=== PATIENT | female | born 1955 | race Caucasian/White ===

== ENCOUNTER → 2017-02-16 | Outpatient (CLI) | payer BC ==
--- NOTE | 2017-02-16 09:22 | US ---
EXAMINATION TYPE: US abdomen complete DATE OF EXAM: 02/16/2017 8:57 AM COMPARISON: NONE CLINICAL HISTORY: R10.13 EPIGASTRIC PAIN, Gb removed 8 years ago.. EXAM MEASUREMENTS: Liver Length: 15.1 cm Gallbladder Wall: Surgically absent cm CBD: 0.5 cm Spleen: 10.7 cm Right Kidney: 11.2 x 5.5 x 5.1 cm Left Kidney: 11.0 x 4.7 x 5.0 cm cm TECHNOLOGIST IMPRESSION: Pancreas: Obscured by bowel gas Liver: Obscured by overlying bowel gas, imaged portions wnl Gallbladder: Surgically absent Evidence for sonographic North's sign: yes CBD: wnl Spleen: wnl Right Kidney: wnl Left Kidney: wnl Upper IVC: wnl Abd Aorta: wnl The visualized liver is heterogeneously hyperechoic. There is no suspicious intrahepatic ductal dilat ation seen. Evaluation for focal masses is suboptimal due to heterogeneity and shadowing from overlyi ng bowel gas . The intrahepatic portion of the IVC and visualized abdominal aorta are within normal l imits. Gallbladder is surgically absent. Common bile duct is unremarkable. The visualized portions of the pancreas are heterogeneous. Portions of pancreas are obscured by overlying bowel gas. The spl een is unremarkable. Kidneys are symmetric and free of hydronephrosis. No renal lesions are seen. IMPRESSION: Suboptimal study without suspicious finding seen to account for patient's symptoms
== END | disposition home or self-care (01) ==
LOC: RADUSWWP 08:30
DX: R10.13 Epigastric pain (principal)
CPT/HCPCS: 76700

== ENCOUNTER → 2017-02-16 | Outpatient (CLI) | payer BC ==
[2017-02-16 10:04] LABS: ALT 54 U/L (9-52); AST 51 U/L (14-36); Alkaline Phosphatase 89 U/L (38-126); Anion Gap 10 mmol/L; Blood Urea Nitrogen 14 mg/dL (7-17); Calcium 9.4 mg/dL (8.4-10.2); Carbon Dioxide 31 mmol/L (22-30); Chloride 102 mmol/L (98-107); Cholesterol 199 mg/dL (<200); Glucose 96 mg/dL (74-99); HDL Cholesterol 56 mg/dL (40-60); Non-African American GFR(MDRD) >60 (>60 ml/min/1.73 sqM); Sodium 143 mmol/L (137-145); Total Bilirubin 0.6 mg/dL (0.2-1.3); Total Protein 7.4 g/dL (6.3-8.2); Triglycerides 90 mg/dL (<150)
[2017-02-16 10:13] LABS: Potassium 4.2 mmol/L (3.5-5.1)
== END | disposition home or self-care (01) ==
LOC: LABWHC1 08:34
PROVIDERS: ATTEND Nurse Practitioner Family
DX: I10 Essential (primary) hypertension (principal); E78.2 Mixed hyperlipidemia
CPT/HCPCS: 36415; 80053; 80061

== ENCOUNTER → 2017-12-20 | Outpatient (CLI) | payer OTHER ==
--- NOTE | 2017-12-22 09:19 | MM ---
Reason for exam: screening (asymptomatic). Last mammogram was performed 2 years and 8 months ago. History: Patient is postmenopausal and history of other cancer. Family history of breast cancer in grandmother. Took estrogen for 10 years beginning at age 40. Physical Findings: A clinical breast exam by your physician is recommended on an annual basis and results should be correlated with mammographic findings. MG Screening Mammo w CAD Bilateral CC and MLO view(s) were taken. Prior study comparison: April 14, 2015, bilateral MG screening mammo w CAD. December 16, 2011, bilateral digital screening mammo w/CAD. The breast tissue is heterogeneously dense. This may lower the sensitivity of mammography. No significant changes when compared with prior studies. ASSESSMENT: Benign, BI-RAD 2 RECOMMENDATION: Routine screening mammogram of both breasts in 1 year.
== END | disposition home or self-care (01) ==
LOC: RADMAMWWP 11:21
PROVIDERS: ATTEND Family Medicine
DX: Z12.31 Encounter for screening mammogram for malignant neoplasm of breast (principal)
CPT/HCPCS: 77067

== ENCOUNTER 2018-06-04 11:37 | Day surgery (SDC) | payer OTHER ==
[2018-06-04 12:35] VITALS: RESP 16; TEMP 99
[2018-06-04] MEDS ORDERED: LACTATED RINGERS 1,000 ML IV ONE (12:36)
[2018-06-04] MEDS ORDERED: LIDOCAINE 1% 20 ML VIAL (10MG/ML) FOR IV START INTRADERMA ONE (12:37)
[2018-06-04] MEDS ORDERED: LACTATED RINGERS 1,000 ML IV SCH (12:41)
[2018-06-04] MEDS ORDERED: PROPOFOL 10 MG/ML 20 ML VIAL IV ONE (12:51)
[2018-06-04] MEDS ORDERED: LIDOCAINE 1% INJ 10MG/ML (20 ML MDV) ONE (12:51)
--- NOTE | 2018-06-04 13:19 | P.PCN ---
Date of Procedure: 06/04/18 Procedure(s) Performed: Procedure: Esophagogastroduodenoscopy and biopsy. Preoperative diagnosis: Epigastric pain and chronic reflux symptoms. Postoperative diagnosis: Small sliding hiatal hernia and low-grade distal esophagitis. Mild antral gastritis. Multiple biopsies obtained from the duodenum, antrum and esophagus. Preparation and sedation: Was provided by anesthesia. Brief clinical history: The patient is a 62-year-old female who was evaluated in the office regarding long standing history of reflux and dyspepsia for which she has been on treatment with omeprazole twice a day. The patient had worsening epigastric pain for more than 3 months at times radiating into the upper quadrants. No change in bowel habits or bleeding. She had prior cholecystectomy. This evaluation is to assess for peptic ulcer disease or complicated reflux disease or other pathology. Procedure: With the patient on her left lateral decubitus position and after informed consent and adequate sedation, I passed a Olympus-GIF 160 video upper endoscope through the cricopharyngeus down the esophagus. GE junction was around 36 cm from the incisors and there was a small sliding hiatal hernia. The distal esophagus showed some erythema and some exudates sticking to the wall but no obvious erosions or ulcers. There were no strictures or Ramon's esophagus. The endoscope was advanced into the stomach which was insufflated with air and inspected in detail including the retroflex view in the cardia. There was some mottling and erythema in the antrum but no ulcers or erosions. Pyloric channel, duodenal bulb, post bulbar area and descending duodenum showed some minimal erythema. I obtained multiple biopsies from the duodenum, antrum and esophagus then the endoscope was withdrawn. The patient tolerated the procedure well. Plan: The patient was reassured. Will await biopsy results. She will follow-up in the office next month and we will keep you updated on her progress.
[2018-06-04 13:46] VITALS: BP 138/91; PULSE 59
== END 2018-06-04 13:53 | disposition home or self-care (01) ==
LOC: ORWHC2ENDO 11:37
DX: K29.50 Unspecified chronic gastritis without bleeding (principal); K21.0 Gastro-esophageal reflux disease with esophagitis; K44.9 Diaphragmatic hernia without obstruction or gangrene; I10 Essential (primary) hypertension; E78.5 Hyperlipidemia, unspecified; F32.9 Major depressive disorder, single episode, unspecified; Z79.899 Other long term (current) drug therapy; Z88.2 Allergy status to sulfonamides
CPT/HCPCS: 88305; 43239; J2001; J2704

== ENCOUNTER → 2019-03-14 | Outpatient (CLI) | payer OTHER ==
--- NOTE | 2019-03-14 13:28 | BD ---
EXAMINATION TYPE: Axial Bone Density DATE OF EXAM: 03/14/2019 COMPARISON: DEXA from 2015. CLINICAL HISTORY: Osteopenia per order. Height: 66 Weight: 180.6 FRAX RISK QUESTIONS: Alcohol (3 or more units per day): no Family History (Parent hip fracture): no Glucocorticoids (More than 3mos): no (Ex: prednisone, prednisolone, methylprednisolone, dexamethasone, and hydrocortisone). History of Fracture in Adulthood: yes Secondary Osteoporosis: 1. Type 1 Diabetes: no 2. Hyperthyroidism: no 3. Menopause before 45: yes 4. Malnutrition: no 5. Chronic liver disease: no Rheumatoid Arthritis: no Current Tobacco Use: no RISK FACTORS HISTORY OF: Family History of Osteoporosis: no Active: yes Diet low in dairy products/other sources of calcium: yes Postmenopausal woman: age 40 MEDICATIONS: Additional History: EXAM MEASUREMENTS: Bone mineral densitometry was performed using the [employer] System. Bone mineral density as measured about the Lumbar spine is: ----- L1-L4(G/cm2): 1.263 T Score Values are as follows: ----- L2: 0.3 ----- L3: 0.8 ----- L4: 1.5 ----- L1-L4: 0.7 Bone mineral density has: increased 0.5 % since study of: 04.14.2015 Bone mineral density about the R hip (g/cm2): 0.718 Bone mineral density about the L hip (g/cm2): 0.800 T Score values are as follows: -----R Neck: -2.3 -----L Neck: -1.7 -----R Total: -1.4 -----L Total: -0.7 Bone mineral density has: decreased -5.6 % since study of: 04.14.2015 IMPRESSION: Osteopenia (T Score between -2.5 and -1) remains present femoral neck level in both hips and is decre ased at this level from prior. There remains slightly increased risk of fracture and the patient may be considered for treatment. Re-Screen 2-5 years. NOTE: T-SCORE=SD OF THE YOUNG ADULT MEAN.
--- NOTE | 2019-03-15 13:30 | MM ---
Reason for exam: screening (asymptomatic). Last mammogram was performed 1 year and 3 months ago. History: Patient is postmenopausal and history of other cancer. Family history of breast cancer in grandmother. Took estrogen for 10 years beginning at age 40. Physical Findings: A clinical breast exam by your physician is recommended on an annual basis and results should be correlated with mammographic findings. MG Screening Mammo w CAD Bilateral CC and MLO view(s) were taken. Prior study comparison: December 20, 2017, bilateral MG screening mammo w CAD. April 14, 2015, bilateral MG screening mammo w CAD. The breast tissue is heterogeneously dense. This may lower the sensitivity of mammography. Benign appearing bilateral calcifications. No suspicious abnormality. No significant changes when compared with prior studies. ASSESSMENT: Benign, BI-RAD 2 RECOMMENDATION: Routine screening mammogram of both breasts in 1 year.
== END | disposition home or self-care (01) ==
LOC: RADMAMWWP 11:44
PROVIDERS: ATTEND Obstetrics & Gynecology
DX: Z12.31 Encounter for screening mammogram for malignant neoplasm of breast (principal); M85.851 Other specified disorders of bone density and structure, right thigh; M85.852 Other specified disorders of bone density and structure, left thigh
CPT/HCPCS: 77067; 77080

== ENCOUNTER 2020-01-31 15:34 | Emergency (ER) | payer OTHER ==
[2020-01-31 15:40] VITALS: BP 141/71; PULSE 99; RESP 20; TEMP 98
--- NOTE | 2020-01-31 16:04 | XR ---
EXAMINATION TYPE: XR shoulder complete RT DATE OF EXAM: 01/31/2020 CLINICAL HISTORY: Right shoulder pain after fall TECHNIQUE: Three views of the right shoulder are obtained. COMPARISON: None. FINDINGS: There is no acute fracture/dislocation evident in the right shoulder. The acromioclavicul ar and glenohumeral joint spaces appear aligned with mild acromioclavicular arthropathy. The visuali zed ribs are intact and unremarkable. IMPRESSION: There is no acute fracture or dislocation in the right shoulder.
--- NOTE | 2020-01-31 16:10 | XR ---
EXAMINATION TYPE: XR wrist complete RT DATE OF EXAM: 01/31/2020 COMPARISON: None HISTORY: Pain, fall TECHNIQUE: Left wrist is examined in 4 views. FINDINGS: No acute fracture or dislocation is evident. Joint spaces are preserved. Soft tissues are n ormal. Follow-up exams would be recommended 7-10 days from acute trauma for continued pain. Nuclear medicine bone scan could be performed if there is pain at the anatomic snuff box. IMPRESSION: 1. Normal 4 view right wrist.
--- NOTE | 2020-01-31 16:11 | XR ---
EXAMINATION TYPE: XR elbow complete RT DATE OF EXAM: 01/31/2020 COMPARISON: None HISTORY: Fall, pain TECHNIQUE: Right elbow is examined in 3 views. FINDINGS: Radial head articulates with the humerus. Anterior fat pad is normal. No elevation of poste rior fat pad is evident. No acute fractures or dislocations are evident. IMPRESSION: 1. Normal three-view right elbow. 2. Follow-up exams can be performed 7-10 days from acute trauma for continued pain.
[2020-01-31] MEDS ORDERED: ACET/COD 300 MG/30 MG STARTER PACK 6 TAB BTL PO STA (16:16)
--- NOTE | 2020-01-31 16:18 | ED ---
Fall HPI - General Chief Complaint: Fall Stated Complaint: wrist pain Time Seen by Provider: 01/31/20 15:41 Source: patient Mode of arrival: ambulatory - History of Present Illness Initial Comments: 64-year-old female presenting for right wrist pain x 1 day. Patient states that she fell yesterday after tripping over her dog. She states that she has right wrist pain she states she has some mild pain in the elbow and shoulder she is not sure if she jammed these joints. Patient does have limitation in range of motion at the shoulder or elbow. Patient sates she is able to range the right wrist however is painful mostly near the aspect of the thumb. Patient denies any pain of the hand. Patient denies any injury to the head or knocked denies loss of consciousness she states this was not syncope this is interpreted fall. Patient denies injury to the chest abdomen or back patient has no other complaints upon arrival she denies any numbness tingling or loss of sensation coolness or pallor of the extremity. Remaining review of systems negative upon arrival patient appears well no signs of acute distress ambulatory. - Related Data Home Medications Medication Instructions Recorded Confirmed Dicyclomine [Bentyl] 1 tab PO TID 10/19/16 06/04/18 Lisinopril-Hctz 10-12.5 mg 1 tab PO DAILY 10/19/16 06/04/18 [Zestoretic 10-12.5] Omeprazole 1 tab PO BID 10/19/16 06/04/18 Sertraline HCl [Zoloft] 1 tab PO DAILY 10/19/16 06/04/18 Fluticasone Nasal Powers [Flonase 2 spr EA NOSTRIL DAILY 06/04/18 06/04/18 Nasal Powers] Pravastatin Sodium [Pravachol] 1 tab PO BID 06/04/18 06/04/18 Allergies Allergy/AdvReac Type Severity Reaction Status Date / Time Sulfa (Sulfonamide Allergy Rash/Hives Verified 01/31/20 15:40 Antibiotics) Review of Systems ROS Statement: Those systems with pertinent positive or pertinent negative responses have been documented in the HPI. ROS Other: All systems not noted in ROS Statement are negative. Past Medical History Past Medical History: GERD/Reflux, Hypertension History of Any Multi-Drug Resistant Organisms: None Reported Past Surgical History: Cholecystectomy, Hysterectomy Past Psychological History: Depression Smoking Status: Never smoker Past Alcohol Use History: Occasional Past Drug Use History: None Reported General Exam - General Exam Comments Initial Comments: General: The patient is awake and alert, in no distress, and does not appear acutely ill. Eye: +3 mm pupils are equal, round and reactive to light, extra-ocular movements are intact. No nystagmus. There is normal conjunctiva bilaterally. No signs of icterus. Ears, nose, mouth and throat: There are moist mucous membranes and no oral lesions. No raccoon or Perea sign Neck: The neck is supple, there is no tenderness or JVD. Cardiovascular: There is a regular rate and rhythm. No murmur, rub or gallop is appreciated. Respiratory: Lungs are clear to auscultation, respirations are non-labored, breath sounds are equal. No wheezes, stridor, rales, or rhonchi. Musculoskeletal: Upon inspection of the wrists b/l there is mild soft tissue swelling of the right wrist, anatomical snuff box tenderness. Patient has some pain with range of motion at the elbow and shoulder however no limitations. Strength intact at the shoulders elbows and wrists bilaterally equal in comparison. Patient is able to make the okay fingers crossed thumbs-up and oppose the small digit and thumb. Radial pulses are equal bilaterally +2. Compartments are soft and compressible the right upper extremity equal comparison the left. Capillary refill less than 3 seconds. . Neurological: A&O x 3. CN II-XII intact grossly, There are no obvious motor or sensory deficits. Coordination appears grossly intact. Speech is normal. Skin: Skin is warm and dry and no rashes or lesions are noted. Psychiatric: Cooperative, appropriate mood & affect, normal judgment. Limitations: no limitations Course Vital Signs 01/31/20 01/31/20 15:38 16:46 Temperature 98 F 98 F Pulse Rate 99 99 Respiratory 20 20 Rate Blood Pressure 141/71 141/71 O2 Sat by Pulse 99 99 Oximetry Medical Decision Making - Medical Decision Making 64-year-old female presenting for follow-up. Patient does have anatomical snuffbox tenderness and pain with range of motion of the right wrist concerning for possible scaphoid fracture. No obvious scaphoid fracture on plain films. Patient was neurovascularly intact. At this time I did place patient in thumb spica splint and recommend she follow-up closely with primary care as well as orthopedic surgery to have an outpatient MRI to rule out a scaphoid fracture as I discussed that this area is poorly vascularized and there is risk of delayed healing patient verbalized understanding and is aware of the importance of timely and prompt follow-up. Otherwise at this time feel patient is stable for discharge with appropriate follow-up and symptomatic treatment with ibuprofen and Tylenol. Patient was discharged appearing well agreeable to this care plan. Case discussed wt Dr. Brown . Imaging studies were personally reviewed. Disposition Clinical Impression: Right wrist pain, Right elbow pain, Right shoulder pain, Fall Disposition: HOME SELF-CARE Condition: Good Instructions (If sedation given, give patient instructions): R.I.C.E. Treatment (ED) Additional Instructions: Please use medication as discussed. Please follow-up orthopedic surgery in next 3-5 days to rule out occult scaphoid fracture, keep splint in place. Please return to emergency room if the symptoms increase or worsen or for any other concerns. Is patient prescribed a controlled substance at d/c from ED?: No Referrals: Tee Gaspar MD [Primary Care Provider] - 1-2 days Claudio Olsen DO [Medical Doctor] - 1-2 days Time of Disposition: 16:17
== END 2020-01-31 16:53 | disposition home or self-care (01) ==
LOC: EC 15:34
DX: M25.531 Pain in right wrist (principal); M25.511 Pain in right shoulder; M25.521 Pain in right elbow; M79.89 Other specified soft tissue disorders; K21.9 Gastro-esophageal reflux disease without esophagitis; I10 Essential (primary) hypertension; F32.9 Major depressive disorder, single episode, unspecified; Z79.899 Other long term (current) drug therapy; Z88.2 Allergy status to sulfonamides; W01.0XXA Fall on same level from slipping, tripping and stumbling without subsequent striking against object, initial encounter; Y92.009 Unspecified place in unspecified non-institutional (private) residence as the place of occurrence of the external cause
CPT/HCPCS: 99283

== ENCOUNTER → 2020-07-17 | Outpatient (CLI) | payer MEDICARE, OTHER ==
--- NOTE | 2020-07-17 09:31 | US ---
EXAMINATION TYPE: US abdomen limited DATE OF EXAM: 07/17/2020 COMPARISON: US 02/16/17 CLINICAL HISTORY: R10.13 EPIGASTRIC PAIN,R10.810 ABD PAIN. EXAM MEASUREMENTS: Liver Length: 15.4 cm Gallbladder Wall: Surgically absent cm CBD: 0.3 cm Right Kidney: 10.1 x 4.8 x 4.5 cm Pancreas: Obscured by bowel gas Liver: Partially Obscured by bowel gas, no masses seen Gallbladder: Surgically absent Evidence for sonographic North's sign: CBD: wnl Right Kidney: wnl IMPRESSION: 1. Postcholecystectomy with no acute process.
== END | disposition home or self-care (01) ==
LOC: RADUSWWP 09:01
PROVIDERS: ATTEND Family Medicine
DX: R10.13 Epigastric pain (principal); R74.0 Nonspecific elevation of levels of transaminase and lactic acid dehydrogenase [LDH]; R10.817 Generalized abdominal tenderness; Z90.49 Acquired absence of other specified parts of digestive tract
CPT/HCPCS: 76705

== ENCOUNTER → 2020-08-06 | Outpatient (CLI) | payer MEDICARE, OTHER ==
--- NOTE | 2020-08-06 15:46 | CONS ---
CONSULTATION DATE OF SERVICE: 08/06/2020 This patient is a 65-year-old lady who was evaluated in the sleep center for possible obstructive sleep apnea-hypopnea syndrome. HISTORY OF PRESENT ILLNESS/SLEEP-WAKE EVALUATION: The patient usually sleeps about 5 or 6 hours at night. She has problems with falling asleep and consequently falls asleep at different times. She reads in her bedroom. She usually sleeps on the side position. She snores and her snoring is loud. She wakes up from sleep 2 times with episodes of nocturia, heartburn and sweating. In the morning she wakes up tired, has problems with memory, concentration, irritability. [place] Sleepiness Scale is 1. Usually she does not take any naps because she is afraid that if she takes naps, she will have more problems with falling asleep at night. PAST MEDICAL HISTORY: Positive for lupus, hypertension, hyperlipidemia, high eye pressure, allergies, asthma, acid reflux, depression. PAST SURGICAL HISTORY: Cholecystectomy and total hysterectomy. MEDICATIONS: Omeprazole, dicyclomine, sertraline, amitriptyline, Zyrtec, fluticasone, Timolol drops, latanoprost drops, Ventolin inhaler. SOCIAL HISTORY: Negative for smoking. Alcohol consumption occasional. FAMILY HISTORY: Hypertension, hyperlipidemia, snoring, liver problems. REVIEW OF SYSTEMS: Awakenings from sleep, difficulties initiating sleep, problems with memory and concentration. PHYSICAL EXAMINATION: GENERAL: A pleasant lady without distress. VITAL SIGNS: BP 124/71, HR 94, RR 15, height 5 feet 7 inches, weight 178 pounds. Body mass index 27.8, temperature 98.4, oxygen saturation at room air 99%. HEENT: PERRLA, EOMI. Evaluation of oropharynx showed tongue protrudes midline. Low position of soft palate. Mallampati III to NECK: Supple. No JVD. Thyroid is not palpable. LUNGS: Clear to percussion and to auscultation. Good air exchange. No wheezing or rhonchi. HEART: S1, S2 regular. No murmurs, gallops or rubs. ABDOMEN: Soft and nontender. Bowel sounds are present. No organomegaly. EXTREMITIES: No clubbing or cyanosis. DUCT LAYER HELPER: Awake, alert, and oriented X3. Cranial nerves 2 to 7 intact. There is no fasciculation or atrophy. noted. No focal deficits observed. IMPRESSION: 1. Loud snoring, awakenings from sleep with episodes of nocturia, low position of soft palate; obstructive sleep apnea-hypopnea syndrome. 2. History of hypertension. 3. History of lupus. 4. History of hyperlipidemia. 5. History of high eye pressure. 6. Allergies. 7. Acid reflux. 8. History of depression. 9. Status post cholecystectomy. 10.Status post total hysterectomy. PLAN: 1. Polysomnography for evaluation of patient's breathing during sleep. 2. CPAP/BiPAP titration if sleep study confirms obstructive sleep apnea-hypopnea syndrome. 3. Preferable position during sleep on the side. 4. No driving if patient feels any sleepiness. 5. I will see patient for follow up visit to explain results of testing and following plan. Thank you very much for referring this patient for consultation. Sincerely, Avinash Beach MD, PhD, FAASM Diplomat of [employer] [place] [employer] Industrial Electrical Engineer of [facility] [place] MMODL / IJN: [id number] /
== END | disposition home or self-care (01) ==
LOC: SLEEP 14:17
PROVIDERS: ATTEND Internal Medicine
DX: G47.33 Obstructive sleep apnea (adult) (pediatric) (principal); K21.9 Gastro-esophageal reflux disease without esophagitis; T78.40XA Allergy, unspecified, initial encounter; Z90.49 Acquired absence of other specified parts of digestive tract; Z90.710 Acquired absence of both cervix and uterus; Z86.79 Personal history of other diseases of the circulatory system; Z86.59 Personal history of other mental and behavioral disorders
CPT/HCPCS: 99211

== ENCOUNTER → 2020-12-11 | Outpatient (CLI) | payer MEDICARE ==
--- NOTE | 2020-12-14 08:42 | MM ---
Reason for exam: screening (asymptomatic). Last mammogram was performed 1 year and 9 months ago. History: Patient is postmenopausal and history of other cancer. Family history of breast cancer in paternal grandmother at age 60. Took estrogen for 10 years beginning at age 40. Physical Findings: A clinical breast exam by your physician is recommended on an annual basis and results should be correlated with mammographic findings. MG 3D Screening Mammo W/Cad Bilateral CC and MLO view(s) were taken. Prior study comparison: March 14, 2019, bilateral MG screening mammo w CAD. April 14, 2015, bilateral MG screening mammo w CAD. The breast tissue is heterogeneously dense. This may lower the sensitivity of mammography. Superior right asymmetric density on MLO is more defined and incompletely disperses on 3D. This may represent superimposition shadow but further evaluations is recommended. ASSESSMENT: Incomplete: need additional imaging evaluation, BI-RAD 0 RECOMMENDATION: Special view mammogram of the right breast. (3D) If lesion persists on supplemental views, image directed ultrasound is recommended. [facility] will attempt to contact patient to return for supplemental views and ultrasound if indicated.
== END | disposition home or self-care (01) ==
LOC: RADMAMWWP 10:25
PROVIDERS: ATTEND Family Medicine
DX: Z12.31 Encounter for screening mammogram for malignant neoplasm of breast (principal)
CPT/HCPCS: 77063; 77067

== ENCOUNTER → 2020-12-24 | Outpatient (CLI) | payer MEDICARE ==
--- NOTE | 2020-12-24 11:21 | MM ---
Reason for exam: additional evaluation requested from abnormal screening. Last mammogram was performed less than 1 month ago. History: Patient is postmenopausal and history of other cancer. Family history of breast cancer in paternal grandmother at age 60. Took estrogen for 10 years beginning at age 40. Physical Findings: Nurse did not find any significant physical abnormalities on exam. MG 3D Work Up W/Cad RT LM and spot compression MLO view(s) were taken of the right breast. Prior study comparison: December 11, 2020, bilateral MG 3d screening mammo w/cad. March 14, 2019, bilateral MG screening mammo w CAD. The breast tissue is heterogeneously dense. This may lower the sensitivity of mammography. Superior asymmetric density disperses on additional views. No significant new findings when compared with previous films. These results were verbally communicated with the patient and result sheet given to the patient on 12/24/20. ASSESSMENT: Negative, BI-RAD 1 RECOMMENDATION: Return to routine screening mammogram schedule for both breasts.
== END | disposition home or self-care (01) ==
LOC: RADMAMWWP 10:20
PROVIDERS: ATTEND Family Medicine
DX: R92.8 Other abnormal and inconclusive findings on diagnostic imaging of breast (principal)
CPT/HCPCS: 77065; G0279; 77061

== ENCOUNTER 2021-03-16 07:46 | Day surgery (SDC) | payer MEDICARE ==
[2021-03-11 15:35] VITALS: BMI 28.3
[~2021-03-16 07:46] MED LIST: LACTATED RINGERS 1,000 ML IV SCH; LIDOCAINE 1% (10MG/ML) FOR IV START INTRADERMA PRN
[2021-03-16] MEDS ORDERED: MIDAZOLAM 2 MG/2 ML VIAL ONE (08:19)
[2021-03-16] MEDS ORDERED: PROPOFOL 10 MG/ML 20 ML VIAL IV ONE (08:19)
[2021-03-16] MEDS ORDERED: fentaNYL (PF) 50 MCG/ML 2 ML AMP ONE (08:19)
[2021-03-16] MEDS ORDERED: LIDOCAINE 1% INJ 10MG/ML (20 ML MDV) ONE (08:19)
[2021-03-16 08:21] LABS: Glucose,Whole Blood 87 mg/dL (75-99)
[2021-03-16 08:23] VITALS: TEMP 97
--- NOTE | 2021-03-16 09:07 | P.PCN ---
Date of Procedure: 03/16/21 Description of Procedure: Brief history: Patient is a pleasant 65-year-old female presenting for outpatient EGD and colonoscopy for symptoms of GERD without esophagitis and history of colon polyps. Patient has a long-standing history of gastroesophageal reflux disease on Protonix twice daily. She also has a history of irritable bowel syndrome and previously had symptoms of loose bowel movements improved after switching to a low lactose diet. Currently she reports chronic constipation. The patient previously underwent colonoscopy with polypectomy and 02/2016. Procedure performed: Esophagogastroduodenoscopy with biopsy Colonoscopy with polypectomy Estimated blood loss: Minimal. Preoperative diagnosis: Gastroesophageal reflux disease without esophagitis, heartburn, personal history of colon polyps, last colonoscopy 2015. Anesthesia: MAC Procedure: After informed consent was obtained from the patient was brought into the endoscopy unit and IV sedation was administered by anesthesia under continuous monitoring. Initially upper endoscopy was done. The Olympus GF 190 video endo scope was inserted into the mouth and esophagus intubated without any difficulty and was gradually advanced into the stomach and duodenum and carefully examined. The bulb and second part of the duodenum appeared normal, with biopsies taken. The scope was then withdrawn into the stomach adequately insufflated with air and upon careful examination the antrum and body, cardia and fundus appeared n ormal, except for some mild punctate erythema suggestive of mild gastritis with biopsies of antrum and body taken. A few diminutive polyps were removed with cold forcep polypectomy, likely fundic gland polyps. The scope was then withdrawn into the esophagus. The GE junction was located at 36 cm to the incisors. It appeared regular with no erythema erosions or ulcerations, with biopsies of the lower esophagus taken. Rest of the esophagus appeared normal. Patient tolerated the procedure well. At this time the patient continued to remain sedation. Initial digital rectal examination was normal. Olympus CF 190 video colonoscope was then inserted into the rectum and gradually advanced to the cecum without any difficulty. Careful examination was performed as the scope was gradually being withdrawn. The prep was excellent. The cecum, ascending colon, transverse colon, descending colon, sigmoid colon and rectum appeared normal. Multiple small and large mouth diverticula noted in the left colon. A flat 12 mm broad-based ascending colon polyp was removed with cold snare polypectomy. A 3 mm sessile hepatic flexure polyp was removed with cold snare polypectomy. Retroflexion was performed in the rectum and no lesions were noted, low-grade internal hemorrhoids. Patient tolerated the procedure well. Impression: 1. Mild gastritis. Multiple gastric polyps. Biopsies of the duodenum, antrum body, gastric polyps and lower esophagus. 2. Broad-based ascending colon polyp removed with cold snare polypectomy. Diminutive hepatic flexure polyp removed with cold snare polypectomy. Moderate left colonic diverticulosis. Internal hemorrhoids. Recommendations: Findings of this examination were discussed with the patient as well as her family. Okay to resume diet. Okay to resume medication. Await pathology from biopsies and polypectomy. Follow-up in the GI clinic as scheduled. Recommend repeat colonoscopy in 3 years for colon polyps any pathology from polypectomy.
[2021-03-16 09:42] VITALS: BP 142/90; PULSE 80; RESP 20
== END 2021-03-16 09:33 | disposition home or self-care (01) ==
LOC: ORWHC2ENDO 07:46
PROVIDERS: ATTEND Internal Medicine
DX: K29.50 Unspecified chronic gastritis without bleeding (principal); K31.7 Polyp of stomach and duodenum; K21.00 Gastro-esophageal reflux disease with esophagitis, without bleeding; K58.1 Irritable bowel syndrome with constipation; D12.2 Benign neoplasm of ascending colon; D12.3 Benign neoplasm of transverse colon; K64.8 Other hemorrhoids; K57.30 Diverticulosis of large intestine without perforation or abscess without bleeding; I10 Essential (primary) hypertension; E78.5 Hyperlipidemia, unspecified; J45.909 Unspecified asthma, uncomplicated; Z79.899 Other long term (current) drug therapy; Z88.2 Allergy status to sulfonamides; Z91.011 Allergy to milk products
CPT/HCPCS: 88305; 45385; 43239; J2250; J2001; J3010; J2704

== ENCOUNTER 2021-08-12 21:08 | Emergency (ER) | payer MEDICARE, OTHER ==
[2021-08-12 21:12] VITALS: BP 153/84; PULSE 107; RESP 19; TEMP 98.6
[2021-08-12] MEDS ORDERED: dexAMETHasone 2 MG TAB PO STA (21:40)
--- NOTE | 2021-08-12 21:40 | ED ---
Extremity Problem HPI - General Chief complaint: Extremity Problem,Nontraumatic Stated complaint: Arm Pain Time Seen by Provider: 08/12/21 21:21 Source: patient Mode of arrival: ambulatory Limitations: no limitations - Related Data Home Medications Medication Instructions Recorded Confirmed Fluticasone Nasal [place] [Flonase 2 spr EA NOSTRIL DAILY 06/04/18 03/11/21 Nasal [place]] Amitriptyline HCl 50 mg PO HS 03/11/21 03/11/21 Betamethasone Dipropionate 1 applic TOPICAL DAILY 03/11/21 03/11/21 [Diprolene AF 0.05% Cream] Biotin 10,000 mcg PO DAILY 03/11/21 03/11/21 Calcium/Vitamin D 1 tab PO DAILY 03/11/21 03/11/21 Dicyclomine [Bentyl] 40 mg PO BID 03/11/21 03/11/21 Fiber. 1 dose PO DAILY 03/11/21 03/11/21 Hydoxychlor 200 mg PO BID 03/11/21 03/11/21 Latanoprost [Xelpros] 1 drop LEFT EYE HS 03/11/21 03/11/21 Multivitamins, Thera [Multivitamin 1 tab PO DAILY 03/11/21 03/11/21 (formulary)] Pantoprazole [Protonix] 40 mg PO BID 03/11/21 03/11/21 Sertraline [Zoloft] 50 mg PO DAILY 03/11/21 03/11/21 Steroid Injection 1 dose IM Q30D 03/11/21 03/11/21 Timolol [Betimol 0.5% Ophth Soln] 1 drop LEFT EYE BID 03/11/21 03/11/21 fluocinolone acetonide oiL 1 applic BOTH EARS DAILY 03/11/21 03/11/21 [Fluocinolone Acetonide Oil (Otic)] Allergies Allergy/AdvReac Type Severity Reaction Status Date / Time Milk Containing Products Allergy Diarrhea Verified 03/16/21 07:58 [Dairy] Sulfa (Sulfonamide Allergy Rash/Hives Verified 03/16/21 07:58 Antibiotics) Review of Systems ROS Statement: Those systems with pertinent positive or pertinent negative responses have been documented in the HPI. ROS Other: All systems not noted in ROS Statement are negative. Past Medical History Past Medical History: GERD/Reflux, Hyperlipidemia, Hypertension, Memory Impairment Additional Past Medical History / Comment(s): "Supposed to have sleep study done, snores and does not sleep well." Chronic constipation. Discord Lupus. History of Any Multi-Drug Resistant Organisms: None Reported Past Surgical History: Cholecystectomy, Hysterectomy Past Anesthesia/Blood Transfusion Reactions: No Reported Reaction Past Psychological History: Anxiety, Depression Smoking Status: Never smoker Past Alcohol Use History: Rare Past Drug Use History: None Reported - Past Family History Daughter(s) Family Medical History: Cancer Additional Family Medical History / Comment(s): Leukemia. General Exam Limitations: no limitations Course Vital Signs 08/12/21 21:09 Temperature 98.6 F Pulse Rate 107 H Respiratory 19 Rate Blood Pressure 153/84 O2 Sat by Pulse 97 Oximetry Disposition Clinical Impression: Right arm cellulitis, Allergic reaction Disposition: HOME SELF-CARE Condition: Good Instructions (If sedation given, give patient instructions): Urticaria (ED), Cold Compress or Soak (ED) Is patient prescribed a controlled substance at d/c from ED?: No Referrals: Tee Gaspar MD [Primary Care Provider] - 1-2 days
[2021-08-12] MEDS ORDERED: TRIAMCINOLONE 0.1% CREAM 80 GM TUBE TOPICAL ONE (22:00)
== END 2021-08-12 22:02 | disposition home or self-care (01) ==
LOC: EC 21:08
DX: L03.113 Cellulitis of right upper limb (principal); T78.40XA Allergy, unspecified, initial encounter; I10 Essential (primary) hypertension; E78.5 Hyperlipidemia, unspecified; K21.9 Gastro-esophageal reflux disease without esophagitis; F32.9 Major depressive disorder, single episode, unspecified; F41.9 Anxiety disorder, unspecified; Z79.899 Other long term (current) drug therapy
CPT/HCPCS: 99283; J8540

== ENCOUNTER → 2022-01-17 | Outpatient (CLI) | payer MEDICARE ==
--- NOTE | 2022-01-19 13:18 | MM ---
Reason for exam: screening (asymptomatic). Last mammogram was performed 1 year and 1 month ago. History: Patient is postmenopausal and history of other cancer. Family history of breast cancer in paternal grandmother at age 60. Took estrogen for 10 years beginning at age 40. Physical Findings: A clinical breast exam by your physician is recommended on an annual basis and results should be correlated with mammographic findings. MG 3D Screening Mammo W/Cad Bilateral CC and MLO view(s) were taken. Prior study comparison: December 24, 2020, right breast MG 3d work up w/cad RT. December 11, 2020, bilateral MG 3d screening mammo w/cad. The breast tissue is heterogeneously dense. This may lower the sensitivity of mammography. Benign bilateral vascular calcifications. No persisting abnormality on 3D images. No significant changes when compared with prior studies. ASSESSMENT: Benign, BI-RAD 2 RECOMMENDATION: Routine screening mammogram of both breasts in 1 year.
== END | disposition home or self-care (01) ==
LOC: RADMAMWWP 09:20
PROVIDERS: ATTEND Family Medicine
DX: Z12.31 Encounter for screening mammogram for malignant neoplasm of breast (principal); Z78.0 Asymptomatic menopausal state; Z80.3 Family history of malignant neoplasm of breast
CPT/HCPCS: 77063; 77067

== ENCOUNTER 2022-04-16 02:40 | Observation (INO) | payer MEDICARE ==
[2022-04-16 03:40] LABS: Basophils # (A) 0.1 k/uL (0-0.2); Basophils % (A) 1 %; Eosinophils # (A) 0.2 k/uL (0-0.7); Eosinophils % (A) 3 %; HCT 40.3 % (34.0-46.0); HGB 13.4 gm/dL (11.4-16.0); Lymphocytes # (A) 1.3 k/uL (1.0-4.8); Lymphocytes % (A) 23 %; MCHC 33.1 g/dL (31.0-37.0); MCV 93.7 fL (80.0-100.0); Mean Platelet Volume 7.9; Monocytes # (A) 0.5 k/uL (0-1.0); Monocytes % (A) 9 %; Neutrophils # (A) 3.4 k/uL (1.3-7.7); Neutrophils % (A) 62 %; Platelet Count 231 k/uL (150-450); RBC 4.31 m/uL (3.80-5.40); RDW 13.2 % (11.5-15.5); WBC 5.5 k/uL (3.8-10.6)
[2022-04-16 03:47] LABS: Albumin 4.1 g/dL (3.5-5.0); Calcium 9.7 mg/dL (8.4-10.2); Magnesium 2.2 mg/dL (1.6-2.3); Potassium 3.8 mmol/L (3.5-5.1); Total Bilirubin 0.2 mg/dL (0.2-1.3); Total Protein 7.3 g/dL (6.3-8.2)
[2022-04-16 04:08] LABS: INR 0.9 (<1.2); Partial Thromboplastin Time 24.8 sec (22.0-30.0); Prothrombin Time 9.8 sec (9.0-12.0)
--- NOTE | 2022-04-16 04:08 | XR ---
EXAMINATION TYPE: XR chest 2V DATE OF EXAM: 04/16/2022 COMPARISON: NONE HISTORY: Chest pain TECHNIQUE: 2 views FINDINGS: Heart and mediastinum are normal. Lungs are clear consolidation. There is some mild atelect asis is lateral left lung base. No pleural effusion. IMPRESSION: Mild subsegmental atelectasis at the left lung base. Normal heart.
--- NOTE | 2022-04-16 04:10 | ED ---
Chest Pain HPI - General Chief Complaint: Chest Pain Stated Complaint: Chest pressure Time Seen by Provider: 04/16/22 04:07 Source: patient, RN notes reviewed, old records reviewed Mode of arrival: ambulatory Limitations: no limitations - History of Present Illness Initial Comments: This 66 show female to the emergency department for evaluation significant medical history does include high blood pressure cholesterol she presents with chest pain today. No travel history no sick contacts no fevers or other complaints no trauma. Patient does have some concern that maybe she just having an increased buildup of gas that she can't take a deep breath. She [place]. This does cause a little shortness of breath. MD Complaint: chest pain, other (abdominal pain) -: hour(s) Onset: during rest, during exertion Pain Location: substernal Pain Radiation: none Severity: moderate Severity scale (1-10): 5 Quality: aching Consistency: constant Improves With: nothing Worsens With: nothing Anginal Symptoms: nausea Other Symptoms: palpitations Treatments Prior to Arrival: none - Related Data Home Medications Medication Instructions Recorded Confirmed Fluticasone Nasal [place] [Flonase 2 spr EA NOSTRIL DAILY 06/04/18 03/11/21 Nasal [place]] Amitriptyline HCl 50 mg PO HS 03/11/21 03/11/21 Betamethasone Dipropionate 1 applic TOPICAL DAILY 03/11/21 03/11/21 [Diprolene AF 0.05% Cream] Biotin 10,000 mcg PO DAILY 03/11/21 03/11/21 Dicyclomine [Bentyl] 40 mg PO BID 03/11/21 03/11/21 Fiber. 1 dose PO DAILY 03/11/21 03/11/21 Hydoxychlor 200 mg PO BID 03/11/21 03/11/21 Latanoprost [Xelpros] 1 drop LEFT EYE HS 03/11/21 03/11/21 Multivitamins, Thera [Multivitamin 1 tab PO DAILY 03/11/21 03/11/21 (formulary)] Pantoprazole [Protonix] 40 mg PO BID 03/11/21 03/11/21 Sertraline [Zoloft] 50 mg PO DAILY 03/11/21 03/11/21 Steroid Injection 1 dose IM Q30D 03/11/21 03/11/21 Timolol [Betimol 0.5% Ophth Soln] 1 drop LEFT EYE BID 03/11/21 03/11/21 fluocinolone acetonide oiL 1 applic BOTH EARS DAILY 03/11/21 03/11/21 [fluocinolone acetonide oiL 0.01% (Otic)] Previous Rx's Medication Instructions Recorded Calcium/Vitamin D 1 tab PO DAILY #0 04/16/22 Metoprolol Tartrate [Lopressor] 25 mg PO DAILY #30 tab 04/16/22 amLODIPine [Norvasc] 5 mg PO DAILY #30 tab 04/16/22 Allergies Allergy/AdvReac Type Severity Reaction Status Date / Time Milk Containing Products Allergy Diarrhea Verified 04/16/22 02:46 [Dairy] Sulfa (Sulfonamide Allergy Rash/Hives Verified 04/16/22 02:46 Antibiotics) Review of Systems ROS Statement: Those systems with pertinent positive or pertinent negative responses have been documented in the HPI. ROS Other: All systems not noted in ROS Statement are negative. Past Medical History Past Medical History: GERD/Reflux, Hyperlipidemia, Hypertension, Memory Impairment Additional Past Medical History / Comment(s): "Supposed to have sleep study done, snores and does not sleep well." Chronic constipation. Discord Lupus. History of Any Multi-Drug Resistant Organisms: None Reported Past Surgical History: Cholecystectomy, Hysterectomy Past Anesthesia/Blood Transfusion Reactions: No Reported Reaction Past Psychological History: Anxiety, Depression Smoking Status: Never smoker Past Alcohol Use History: Rare Past Drug Use History: None Reported - Past Family History Daughter(s) Family Medical History: Cancer Additional Family Medical History / Comment(s): Leukemia. General Exam Limitations: no limitations General appearance: alert, in no apparent distress Head exam: Present: atraumatic, normocephalic, normal inspection Eye exam: Present: normal appearance, PERRL, EOMI. Absent: scleral icterus, conjunctival injection, periorbital swelling ENT exam: Present: normal exam, mucous membranes moist Neck exam: Present: normal inspection. Absent: tenderness, meningismus, lymphadenopathy Respiratory exam: Present: normal lung sounds bilaterally. Absent: respiratory distress, wheezes, rales, rhonchi, stridor Cardiovascular Exam: Present: regular rate, normal rhythm, normal heart sounds. Absent: systolic murmur, diastolic murmur, rubs, gallop, clicks GI/Abdominal exam: Present: soft, normal bowel sounds. Absent: distended, tenderness, guarding, rebound, rigid Extremities exam: Present: normal inspection, full ROM, normal capillary refill. Absent: tenderness, pedal edema, joint swelling, calf tenderness Back exam: Present: normal inspection Neurological exam: Present: alert, oriented X3, CN II-XII intact Psychiatric exam: Present: normal affect, normal mood Skin exam: Present: warm, dry, intact, normal color. Absent: rash Course Vital Signs 04/16/22 04/16/22 02:43 05:39 Temperature 98.1 F 98 F Pulse Rate 95 79 Respiratory 18 22 Rate Blood Pressure 151/74 138/88 O2 Sat by Pulse 97 97 Oximetry - Reevaluation(s) Reevaluation #1: 04/16/22 04:09 medical records are reviewed Reevaluation #2: Patient informed of results and questions answered At this point patient prefers admission for discharge, does not fill comfortable going home Chest Pain MDM - MDM 66 female who does present for evaluation of chest pain. Patient will be admitted as a chest pain observation history currently does include high blood pressure high cholesterol Disposition Clinical Impression: Chest pain Disposition: ADMITTED IP TO THIS HOSP Condition: Good Is patient prescribed a controlled substance at d/c from ED?: No
[2022-04-16] MEDS ORDERED: MAG HYDROX/AL HYDROX/SIMETH 30 ML CUP PO STA (04:34)
[2022-04-16] MEDS ORDERED: ASPIRIN 81 MG PO STA (05:32)
[2022-04-16] MEDS ORDERED: NITROGLYCERIN SL TABS 0.4 MG TAB SUBLINGUAL PRN (05:32)
[2022-04-16 05:41] VITALS: TEMP 98
[2022-04-16 07:59] VITALS: BP 145/82; PULSE 87; RESP 18
[2022-04-16] MEDS ORDERED: PANTOPRAZOLE 40 MG TABLET PO SCH (08:45)
[2022-04-16] MEDS ORDERED: amLODIPine 5 MG TAB PO SCH (09:00)
[2022-04-16] MEDS ORDERED: METOPROLOL TARTRATE 25 MG TAB PO SCH (09:15)
--- NOTE | 2022-04-16 13:19 | P.CRDCN ---
History of Present Illness History of present illness: HISTORY OF PRESENTING ILLNESS This is a pleasant 66-year-old female past medical history significant for hypertension and IBS. 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 We have been asked to see in consultation for chest pain. She suffers from chronic GERD. In the last 2-3 days she has been experiencing increased gas and full sensation in the epigastric region however this time she describes a burning sensation in the left precordial region and did not typically they're with her associated GERD. She usually can drink a carbonated beverage and things will improve. However this time it is persisting. She does endorse frequent belching and passing gas. She has no shortness of breath, dizziness or palpitations. The pain does not radiate. DIAGNOSTICS EKG reveals sinus rhythm with nonspecific changes. Laboratory reviewed, CBC unremarkable, sodium 139, potassium 3.8, creatinine 0.92, magnesium 2.2 and cardiac enzymes negative 3. Current cardiac medications include []. REVIEW OF SYSTEMS At the time of my exam: CONSTITUTIONAL: Denies fever or chills. CARDIOVASCULAR: Denies chest pain, shortness of breath, orthopnea, PND or palpitations. RESPIRATORY: Denies cough. GASTROINTESTINAL: Denies abdominal pain, diarrhea, constipation, nausea or vomiting. MUSCULOSKELETAL: Denies myalgias. NEUROLOGIC: Denies numbness, tingling, headache or weakness. ENDOCRINE: Denies fatigue, weight change, polydipsia or polyurina. GENITOURINARY: Denies burning, hematuria or urgency with micturation. HEMATOLOGIC: Denies history of anemia or bleeding. PHYSICAL EXAMINATION Blood pressure 145/82 heart rate 87 afebrile and maintaining oxygen saturation on room air. CONSTITUTIONAL: No apparent distress. HEENT: Head is normocephalic. Pupils are equal, round. Sclerae anicteric. Mucous membranes of the mouth are moist. No JVD. No carotid bruit. CHEST EXAMINATION: Lungs are clear to auscultation. No chest wall tenderness is noted on palpation or with deep breathing. HEART EXAMINATION: Regular rate and rhythm. S1, S2 heard. No murmurs, gallops or rub. ABDOMEN: Soft, nontender. EXTREMITIES: 2+ peripheral pulses, no lower extremity edema and no calf tenderness. NEUROLOGIC EXAMINATION: Patient is awake, alert and oriented x3. ASSESSMENT Chest pain, atypical Hypertension GERD PLAN An acute coronary event has been ruled out. Initiate metoprolol 25 mg daily in the morning and amlodipine 5 mg daily. Stable for discharge from a cardiac perspective. Echocardiogram has been taken and will be reviewed. We will schedule her for a stress test in the outpatient setting in the next one to 2 weeks. Thank you kindly for this consultation. Nurse Practitioner note has been reviewed, I agree with a documented findings and plan of care. Patient was seen and examined. Past Medical History Past Medical History: GERD/Reflux, Hyperlipidemia, Hypertension, Memory Im pairment Additional Past Medical History / Comment(s): "Supposed to have sleep study done, snores and does not sleep well." Chronic constipation. Discord Lupus. History of Any Multi-Drug Resistant Organisms: None Reported Past Surgical History: Cholecystectomy, Hysterectomy Past Anesthesia/Blood Transfusion Reactions: No Reported Reaction Past Psychological History: Anxiety, Depression Smoking Status: Never smoker Past Alcohol Use History: Rare Past Drug Use History: None Reported - Past Family History Daughter(s) Family Medical History: Cancer Additional Family Medical History / Comment(s): Leukemia. Medications and Allergies Home Medications Medication Instructions Recorded Confirmed Type Fluticasone Nasal [place] [Flonase 2 spr EA NOSTRIL DAILY 06/04/18 03/11/21 History Nasal [place]] Amitriptyline HCl 50 mg PO HS 03/11/21 03/11/21 History Betamethasone Dipropionate 1 applic TOPICAL DAILY 03/11/21 03/11/21 History [Diprolene AF 0.05% Cream] Biotin 10,000 mcg PO DAILY 03/11/21 03/11/21 History Dicyclomine [Bentyl] 40 mg PO BID 03/11/21 03/11/21 History Fiber. 1 dose PO DAILY 03/11/21 03/11/21 History Hydoxychlor 200 mg PO BID 03/11/21 03/11/21 History Latanoprost [Xelpros] 1 drop LEFT EYE HS 03/11/21 03/11/21 History Multivitamins, Thera [Multivitamin 1 tab PO DAILY 03/11/21 03/11/21 History (formulary)] Pantoprazole [Protonix] 40 mg PO BID 03/11/21 03/11/21 History Sertraline [Zoloft] 50 mg PO DAILY 03/11/21 03/11/21 History Steroid Injection 1 dose IM Q30D 03/11/21 03/11/21 History Timolol [Betimol 0.5% Ophth Soln] 1 drop LEFT EYE BID 03/11/21 03/11/21 History fluocinolone acetonide oiL 1 applic BOTH EARS DAILY 03/11/21 03/11/21 History [fluocinolone acetonide oiL 0.01% (Otic)] Calcium/Vitamin D 1 tab PO DAILY #0 04/16/22 Rx Metoprolol Tartrate [Lopressor] 25 mg PO DAILY #30 tab 04/16/22 Rx amLODIPine [Norvasc] 5 mg PO DAILY #30 tab 04/16/22 Rx Allergies Allergy/AdvReac Type Severity Reaction Status Date / Time Milk Containing Products Allergy Diarrhea Verified 04/16/22 02:46 [Dairy] Sulfa (Sulfonamide Allergy Rash/Hives Verified 04/16/22 02:46 Antibiotics) Physical Exam Vitals: Vital Signs Temp Pulse Pulse Resp BP BP Pulse Ox 04/16/22 08:00 87 18 04/16/22 07:00 98 F 87 18 145/82 97 04/16/22 05:39 98 F 79 22 138/88 97 04/16/22 02:43 98.1 F 95 18 151/74 97 Intake and Output 04/15/22 04/16/22 04/16/22 22:59 06:59 14:59 Intake Total 120 Balance 120 Intake: Oral 120 Other: # Voids 0 Weight 79.379 kg Results 04/16/22 03:12 04/16/22 03:12 Cardiac Enzymes 04/16/22 04/16/22 04/16/22 Range/Units 03:12 03:12 06:10 AST 25 (14-36) U/L Troponin I <0.012 <0.012 (0.000-0.034) ng/mL 04/16/22 Range/Units 09:32 AST (14-36) U/L Troponin I <0.012 (0.000-0.034) ng/mL Coagulation 04/16/22 Range/Units 03:12 PT 9.8 (9.0-12.0) sec APTT 24.8 (22.0-30.0) sec CBC 04/16/22 Range/Units 03:12 WBC 5.5 (3.8-10.6) k/uL RBC 4.31 (3.80-5.40) m/uL Hgb 13.4 (11.4-16.0) gm/dL Hct 40.3 (34.0-46.0) % Plt Count 231 (150-450) k/uL Comprehensive Metabolic Panel 04/16/22 Range/Units 03:12 Sodium 139 (137-145) mmol/L Potassium 3.8 (3.5-5.1) mmol/L Chloride 102 (98-107) mmol/L Carbon Dioxide 30 (22-30) mmol/L BUN 14 (7-17) mg/dL Creatinine 0.92 (0.52-1.04) mg/dL Glucose 105 H (74-99) mg/dL Calcium 9.7 (8.4-10.2) mg/dL AST 25 (14-36) U/L ALT 13 (4-34) U/L Alkaline Phosphatase 109 (38-126) U/L Total Protein 7.3 (6.3-8.2) g/dL Albumin 4.1 (3.5-5.0) g/dL Intake and Output 04/15/22 04/16/22 04/16/22 22:59 06:59 14:59 Intake Total 120 Balance 120 Intake: Oral 120 Other: # Voids 0 Weight 79.379 kg 04/16/22 03:12 04/16/22 03:12
--- NOTE | 2022-04-16 14:19 | P.HPIM ---
History of Present Illness H&P Date: 04/16/22 Chief Complaint: chest pain Patient is a 66-year-old female with known GERD, irritable bowel syndrome, hypertension, and dyslipidemia who presented to the hospital secondary to complaints of burning in her chest. In the ER she underwent an extensive evaluation. She was slightly hypertensive with a blood pressure 150/74. Laboratory analysis was unremarkable. Per report EKG was unremarkable. Troponins were negative. She was given a dose of aspirin and arrangements were made for admission. Patient seen and examined at bedside. She reports a burning sensation is calm in her chest. She has a history of significant gastroesophageal reflux disease. She takes Protonix twice daily. For the last couple of days she had increasing abdominal distention as well as gas. Then yesterday she developed a hernia in her chest and made her worry for possible heart attack or heart disease. She does report that her burning sensation is worse with lying flat and better with sitting. She does report lots of fluids tolerance is since having her gallbladder out. She had been following with care of. Dr. Sagastume's office over his been unable to do so she could not pay her bills. She states her PCP refill her medications last month. She denies any current lightheadedness, dizziness, shortness of breath, numbness or tingling into her arm. She had an EGD and Colonscopy 1 year ago which per the patient were normal. She is feeling well and asking to go home. Pertinent positives and negatives as discussed in HPI, a complete review of systems was performed and all other systems are negative. General: non toxic, no distress, appears at stated age Derm: warm, dry Head: atraumatic, normocephalic, symmetric Eyes: EOMI, no lid lag, anicteric sclera, pupils equal round reactive to light ENT: Nose and ears atraumatic, no thrush, no pharyngeal erythema Neck: No thyromegaly, no cervical lymphadenopathy, trachea midline, supple Mouth: no lip lesion, mucus membranes moist Cardiovascular: S1S2 reg, no murmur, positive posterior tibial pulse bilateral, no edema, capillary refill less than 2 seconds Lungs: clear to ascultation bilateral, no ronchi, no rales, no wheeze, no accessory muscle use Abdominal: soft, nontender to palpation, no guarding, no appreciable organ omegaly, normal bowel sounds Ext: no gross muscle atrophy, muscle strength muscle strength 5 out of 5 in all 4 extremities, no contractures Neuro: CN II-XI grossly intact, light touch intact all 4 extremities, finger to nose within normal limits, Psych: Alert, oriented, appropriate affect Assessment/plan Atypical chest pain likely related to gastroesophageal reflux disease Irritable bowel syndrome Chronic constipation -Add Tums as needed, continue on her Protonix 40 mg twice daily, attempt to follow up with Dr. Plummer in the outpatient setting as able (currently unable as she has not made a payment to the office) -Cardiology recommendations appreciated. Follow up with Dr. Stanton for outpatient stress test. Hypertension with elevated blood pressures -Metoprolol, Norvasc -Follow blood pressures Discoid lupus Continue outpatient follow-up Past Medical History Past Medical History: GERD/Reflux, Hyperlipidemia, Hypertension, Memory Impairment Additional Past Medical History / Comment(s): "Supposed to have sleep study do ne, snores and does not sleep well." Chronic constipation. Discord Lupus. History of Any Multi-Drug Resistant Organisms: None Reported Past Surgical History: Cholecystectomy, Hysterectomy Past Anesthesia/Blood Transfusion Reactions: No Reported Reaction Past Psychological History: Anxiety, Depression Smoking Status: Never smoker Past Alcohol Use History: Rare Past Drug Use History: None Reported - Past Family History Daughter(s) Family Medical History: Cancer Additional Family Medical History / Comment(s): Leukemia. Medications and Allergies Home Medications Medication Instructions Recorded Confirmed Type Fluticasone Nasal [place] [Flonase 2 spr EA NOSTRIL DAILY 06/04/18 03/11/21 Histor y Nasal [place]] Amitriptyline HCl 50 mg PO HS 03/11/21 03/11/21 History Betamethasone Dipropionate 1 applic TOPICAL DAILY 03/11/21 03/11/21 History [Diprolene AF 0.05% Cream] Biotin 10,000 mcg PO DAILY 03/11/21 03/11/21 History Dicyclomine [Bentyl] 40 mg PO BID 03/11/21 03/11/21 History Fiber. 1 dose PO DAILY 03/11/21 03/11/21 History Hydoxychlor 200 mg PO BID 03/11/21 03/11/21 History Latanoprost [Xelpros] 1 drop LEFT EYE HS 03/11/21 03/11/21 History Multivitamins, Thera [Multivitamin 1 tab PO DAILY 03/11/21 03/11/21 History (formulary)] Pantoprazole [Protonix] 40 mg PO BID 03/11/21 03/11/21 History Sertraline [Zoloft] 50 mg PO DAILY 03/11/21 03/11/21 History Steroid Injection 1 dose IM Q30D 03/11/21 03/11/21 History Timolol [Betimol 0.5% Ophth Soln] 1 drop LEFT EYE BID 03/11/21 03/11/21 History fluocinolone acetonide oiL 1 applic BOTH EARS DAILY 03/11/21 03/11/21 History [fluocinolone acetonide oiL 0.01% (Otic)] Calcium/Vitamin D 1 tab PO DAILY #0 04/16/22 Rx Metoprolol Tartrate [Lopressor] 25 mg PO DAILY #30 tab 04/16/22 Rx amLODIPine [Norvasc] 5 mg PO DAILY #30 tab 04/16/22 Rx Allergies Allergy/AdvReac Type Severity Reaction Status Date / Time Milk Containing Products Allergy Diarrhea Verified 04/16/22 02:46 [Dairy] Sulfa (Sulfonamide Allergy Rash/Hives Verified 04/16/22 02:46 Antibiotics) Physical Exam Osteopathic Statement: *. No significant issues noted on an osteopathic structural exam other than those noted in the History and Physical/Consult. Vitals: Vital Signs Temp Pulse Pulse Resp BP BP Pulse Ox 04/16/22 08:00 87 18 04/16/22 07:00 98 F 87 18 145/82 97 04/16/22 05:39 98 F 79 22 138/88 97 04/16/22 02:43 98.1 F 95 18 151/74 97 Intake and Output 04/15/22 04/16/22 04/16/22 22:59 06:59 14:59 Intake Total 120 Balance 120 Intake: Oral 120 Other: # Voids 0 Weight 79.379 kg Results CBC & Chem 7: 04/16/22 03:12 04/16/22 03:12 Labs: Abnormal Lab Results - Last 24 Hours (Table) 04/16/22 Range/Units 03:12 Glucose 105 H (74-99) mg/dL Thrombosis Risk Factor Assmnt - Choose All That Apply Each Factor Represents 1 point: Obesity (BMI >25) Each Risk Factor Represents 2 Points: Age 61-74 years Other congenital or acquired thrombophilia - If yes, enter type in comment: No Thrombosis Risk Factor Assessment Total Risk Factor Score: 3 Thrombosis Risk Factor Assessment Level: Moderate Risk
--- NOTE | 2022-04-16 14:20 | P.DS ---
Providers Date of admission: 04/16/22 05:32 Expected date of discharge: 04/16/22 Attending physician: Panda Sunshine MD Consults: 04/16/22 05:32 Consult Physician Urgent Consulting Provider: Edson Eddy Consult Reason/Comments: cp Do you want consulting provider notified?: Yes Primary care physician: Tee Gaspar Hospital Course: Discharge Diagnosis: Atypical chest pain likely related to gastroesophageal reflux disease Irritable bowel syndrome Chronic constipation Hypertension with elevated blood pressures Discoid lupus Hospital Course: Patient is a 66-year-old female with known GERD, irritable bowel syndrome, hypertension, and dyslipidemia who presented to the hospital secondary to complaints of burning in her chest. In the ER she underwent an extensive evaluation. She was slightly hypertensive with a blood pressure 150/74. Laboratory analysis was unremarkable. Per report EKG was unremarkable. Troponins were negative. She was given a dose of aspirin and arrangements were made for admission. She was seen by cardiology who recommended outpatient follow for stress testing. IT appears to be related to her GERD, encourage her to follow-up with Dr. Plummer. Follow-up: Continue Protonix and Tums as needed, follow-up with Dr. Plummer GI. Follow-up with Cardiology assoicates for outpatient stress test. Started on Metoprolol and norvasc for increased BP. Follow-up wtih Dr. Gaspar in 1-2 days For physical exam see H and P same date. A total of 25 minutes of time were spent preparing this complex discharge summary . Patient Condition at Discharge: Good Plan - Discharge Summary Discharge Rx Participant: No New Discharge Prescriptions: New Metoprolol Tartrate [Lopressor] 25 mg PO DAILY #30 tab amLODIPine [Norvasc] 5 mg PO DAILY #30 tab Continue Fluticasone Nasal [place] [Flonase Nasal [place]] 2 spr EA NOSTRIL DAILY Betamethasone Dipropionate [Diprolene AF 0.05% Cream] 1 applic TOPICAL DAILY Amitriptyline HCl 50 mg PO HS Sertraline [Zoloft] 50 mg PO DAILY Timolol [Betimol 0.5% Ophth Soln] 1 drop LEFT EYE BID Pantoprazole [Protonix] 40 mg PO BID Latanoprost [Xelpros] 1 drop LEFT EYE HS Fiber. 1 dose PO DAILY Calcium/Vitamin D 1 tab PO DAILY #0 Multivitamins, Thera [Multivitamin (formulary)] 1 tab PO DAILY Dicyclomine [Bentyl] 40 mg PO BID Biotin 10,000 mcg PO DAILY fluocinolone acetonide oiL [fluocinolone acetonide oiL 0.01% (Otic)] 1 applic BOTH EARS DAILY Hydoxychlor 200 mg PO BID Steroid Injection 1 dose IM Q30D Discharge Medication List Fluticasone Nasal [place] [Flonase Nasal [place]] 2 spr EA NOSTRIL DAILY 06/04/18 [History] Amitriptyline HCl 50 mg PO HS 03/11/21 [History] Betamethasone Dipropionate [Diprolene AF 0.05% Cream] 1 applic TOPICAL DAILY 03/11/21 [History] Biotin 10,000 mcg PO DAILY 03/11/21 [History] Dicyclomine [Bentyl] 40 mg PO BID 03/11/21 [History] Fiber. 1 dose PO DAILY 03/11/21 [History] Hydoxychlor 200 mg PO BID 03/11/21 [History] Latanoprost [Xelpros] 1 drop LEFT EYE HS 03/11/21 [History] Multivitamins, Thera [Multivitamin (formulary)] 1 tab PO DAILY 03/11/21 [History] Pantoprazole [Protonix] 40 mg PO BID 03/11/21 [History] Sertraline [Zoloft] 50 mg PO DAILY 03/11/21 [History] Steroid Injection 1 dose IM Q30D 03/11/21 [History] Timolol [Betimol 0.5% Ophth Soln] 1 drop LEFT EYE BID 03/11/21 [History] fluocinolone acetonide oiL [fluocinolone acetonide oiL 0.01% (Otic)] 1 applic BOTH EARS DAILY 03/11/21 [History] Calcium/Vitamin D 1 tab PO DAILY #0 04/16/22 [Rx] Metoprolol Tartrate [Lopressor] 25 mg PO DAILY #30 tab 04/16/22 [Rx] amLODIPine [Norvasc] 5 mg PO DAILY #30 tab 04/16/22 [Rx] Follow up Appointment(s)/Referral(s): Ankit Stanton MD [STAFF PHYSICIAN] - 04/27/22 3:15 pm Tee Gaspar MD [Primary Care Provider] - 1-2 days Patient Instructions/Handouts: Chest Pain (ED), GERD (Gastroesophageal Reflux Disease) (DC) Activity/Diet/Wound Care/Special Instructions: Activity: as tolerated Diet: low fat, low acid Special Instructions: Can use tums in addition to your protonix to help with acid reflux as if abdominal pain is worsening. Discharge Disposition: HOME SELF-CARE
--- NOTE | 2022-04-16 14:47 | CA ---
Transthoracic Echo Report Name: Bailey Kelley Age: 66 Gender: F : 1955 Exam Date: 04/16/2022 07:40 Exam Location: [facility] Ht (in): 67 Wt (lb): 175 Ordering Physician: Richard Guillory DO Attending/Referring Phys: [id number], [place] Admissions Manager Joseline Arango, RD Procedure CPT: Indications: CP Cardiac Hx: Hypertension. Hypercholesterolemia. Technical Quality: Fair Contrast 1: Total Dose (mL): Contrast 2: Total Dose (mL): MEASUREMENTS (Male / Female) Normal Values 2D ECHO LV Diastolic Diameter PLAX 3.8 cm 4.2 - 5.9 / 3.9 - 5.3 cm LV Systolic Diameter PLAX 2.6 cm IVS Diastolic Thickness 1.3 cm 0.6 - 1.0 / 0.6 - 0.9 cm LVPW Diastolic Thickness 1.3 cm 0.6 - 1.0 / 0.6 - 0.9 cm LV Relative Wall Thickness 0.7 RV Internal Dim ED PLAX 3.2 cm LA Systolic Diameter LX 3.8 cm 3.0 - 4.0 / 2.7 - 3.8 cm LA Volume 33.3 cm??? 18 - 58 / 22 - 52 cm??? M-MODE Aortic Root Diameter MM 3.2 cm MV E Point Septal Separation 1.6 cm AV Cusp Separation MM 1.8 cm DOPPLER AV Peak Velocity 141.3 cm/s AV Peak Gradient 8.0 mmHg MV Area PHT 2.2 cm??? Mitral E Point Velocity 54.1 cm/s Mitral A Point Velocity 92.6 cm/s Mitral E to A Ratio 0.6 MV Deceleration Time 344.2 ms TR Peak Velocity 231.9 cm/s TR Peak Gradient 21.5 mmHg Right Ventricular Systolic Press 26.5 mmHg FINDINGS Left Ventricle Left ventricular ejection fraction is estimated at 55-60 %. Left ventricular cavity size normal. Mild concentric left ventricular hypertrophy. Right Ventricle Normal right ventricular size. Right ventricular systolic pressure within normal limits. Right Atrium Normal right atrial size. Left Atrium Normal left atrial size. No evidence for an atrial septal defect. Mitral Valve Mild mitral regurgitation. Aortic Valve Trileaflet aortic valve. No aortic valve stenosis or regurgitation. Tricuspid Valve Mild tricuspid regurgitation. Pulmonic Valve Trace pulmonic regurgitation. Pericardium Normal pericardium. Aorta Normal size aortic root and proximal ascending aorta. CONCLUSIONS Normal LV size and systolic function with mild concentric LVH. Mild mitral and tricuspid insufficiency. No pericardial effusion Previewed by: Dr. Louis Marcelo MD (Electronically Signed) Final Date: 16 Apr 2022 14:46
[2022-04-16 17:00] LABS: HDL Cholesterol 62.2 mg/dL (40.00-60.00); Triglycerides 49.6 mg/dL (0.00-149.00)
[2022-04-16 17:12] LABS: Chol/HDL Ratio 3.44 Ratio
[2022-04-17] MEDS ORDERED: ASPIRIN 81 MG PO SCH (09:00)
[2022-04-17] MEDS ORDERED: ASPIRIN 325 MG TAB PO SCH (09:00)
== END 2022-04-16 10:58 | disposition home or self-care (01) ==
LOC: EC 02:40 → 6NMEDSUR 05:32
PROVIDERS: ADMIT Internal Medicine; ATTEND Internal Medicine
DX: R07.89 Other chest pain (principal); K58.1 Irritable bowel syndrome with constipation; I10 Essential (primary) hypertension; L93.0 Discoid lupus erythematosus; K21.9 Gastro-esophageal reflux disease without esophagitis; E78.5 Hyperlipidemia, unspecified; R06.02 Shortness of breath; R00.2 Palpitations; I08.1 Rheumatic disorders of both mitral and tricuspid valves; R41.3 Other amnesia; F41.9 Anxiety disorder, unspecified; F32.A Depression, unspecified; E66.9 Obesity, unspecified; Z68.27 Body mass index [BMI] 27.0-27.9, adult; Z71.9 Counseling, unspecified; Z90.49 Acquired absence of other specified parts of digestive tract; Z90.710 Acquired absence of both cervix and uterus; Z79.52 Long term (current) use of systemic steroids; Z79.899 Other long term (current) drug therapy; Z88.2 Allergy status to sulfonamides; Z91.011 Allergy to milk products; Z80.6 Family history of leukemia
CPT/HCPCS: 99285; 36415; 93005; 93306; 80061; 80053; 83735; 84484; 85025; 85610; 85730; 83721; 71046; G0378

== ENCOUNTER → 2023-03-29 | Outpatient (CLI) | payer MEDICARE ==
--- NOTE | 2023-03-30 07:37 | MM ---
Reason for Exam: Screening (asymptomatic). Last mammogram was performed 1 year(s) and 3 month(s) ago. Patient History: Menarche at age 12. First Full-Term at age 17. Left ovary removed at age 40. Right ovary removed at age 40. Hysterectomy at age 40. Postmenopausal. Estrogen for 10 years from age 40 until age 50. Paternal grandmother had breast cancer, age 60. Risk Values: Bella 5 year model risk: 1.2%. NCI Lifetime model risk: 4.2%. Prior Study Comparison: 12/11/2020 Bilateral Screening Mammogram, [facility]. 12/24/2020 Right Diagnostic Mammogram, [facility]. 01/17/2022 Bilateral Screening Mammogram, [facility]. Tissue Density: The breast tissue is heterogeneously dense. This may lower the sensitivity of mammography. Findings: Analyzed By CAD. There are benign-appearing vascular calcifications bilaterally redemonstrated. There is no suspicious group of microcalcifications or new suspicious mass in either breast. Overall Assessment: Benign, BI-RAD 2 Management: Screening Mammogram of both breasts in 1 year. . Patient should continue monthly self-breast exams. A clinical breast exam by your physician is recommended on an annual basis. This exam should not preclude additional follow-up of suspicious palpable abnormalities. Note on Bella scores and lifetime risk: 1. A Bella score greater than 3% is considered moderate risk. If this is the case, consider specialist referral to assess eligibility for a risk reducing agent. 2. If overall lifetime risk for the development of breast cancer is 20% or higher, the patient may qualify for future screening with alternating mammogram and breast MRI. Electronically signed and approved by: Alcon Moya M.D.
== END | disposition home or self-care (01) ==
LOC: RADMAMWWP 14:59
PROVIDERS: ATTEND Family Medicine
DX: Z12.31 Encounter for screening mammogram for malignant neoplasm of breast (principal); Z78.0 Asymptomatic menopausal state; Z80.3 Family history of malignant neoplasm of breast
CPT/HCPCS: 77063; 77067

== ENCOUNTER → 2023-08-03 | Outpatient (CLI) | payer MEDICARE ==
[2023-08-03 12:55] LABS: African American GFR (CKD) 76 (>60 ml/min/1.73 sqM); Blood Urea Nitrogen 13 mg/dL (7-17); Non-African American GFR(CKD) 66 (>60 ml/min/1.73 sqM)
--- NOTE | 2023-08-04 13:57 | CT ---
EXAMINATION TYPE: CT abdomen pelvis w con DATE OF EXAM: 08/03/2023 COMPARISON: None INDICATION: Generalized abdominal pain. DLP: 749.3 mGycm, Automated exposure control for dose reduction was used. CONTRAST: 100ml mL of Isovue 300. Study performed with Oral Contrast TECHNIQUE: Axial images were obtained from above the diaphragm to the pubic rami in the axial plane a t 5 mm thick sections. Reconstructed images are reviewed on the computer in the coronal plane. FINDINGS: Limited CT sections are obtained the lung bases. There is a 0.8 cm density in the left costophrenic angle. Series [address] ABDOMEN: Liver: Normal Spleen: Normal Pancreas: Normal Adrenal glands: The adrenal glands are normal. Gallbladder: Surgically absent Kidneys: No masses are evident. No hydronephrosis is present. No cysts are present. Delayed images were obtained through the kidneys, which remain unremarkable. Aorta: Vascular calcification is within the aorta. Inferior vena cava: Normal. CT PELVIS: Loops of bowel within the abdomen and pelvis are normal. Diverticulosis without acute diverticulitis is within the sigmoid colon There are loops of bowel which are incompletely distended or lack oral contrast limiting their evaluation. Appendix: Normal as visualized. Urinary bladder: Nondistended Genitourinary structures: Uterus and ovaries are not identified. Osseous structures: No suspicious lytic or sclerotic lesions. IMPRESSION: 1. Diverticulosis without acute diverticulitis. 2. Small density within the lateral left lung base. Solid nodule versus atelectasis could be consider ed. Follow-up CT chest exam in 3-6 months is recommended.
== END | disposition home or self-care (01) ==
LOC: RADCTMAIN 11:58
PROVIDERS: ATTEND Family Medicine
DX: K57.30 Diverticulosis of large intestine without perforation or abscess without bleeding (principal); J98.4 Other disorders of lung; R63.4 Abnormal weight loss; R10.817 Generalized abdominal tenderness
CPT/HCPCS: 82565; 84520; 74177; 36415; Q9967

== ENCOUNTER → 2023-09-19 | Outpatient (CLI) | payer MEDICARE ==
--- NOTE | 2023-09-19 14:30 | BD ---
EXAMINATION TYPE: Axial Bone Density DATE OF EXAM: 09/19/2023 CLINICAL HISTORY: 68 years old Female. ICD-10 CODE: M32.19 SYSTEMIC LUPUS Height: 66.5 Weight: 161.3 FRAX RISK QUESTIONS: Alcohol (3 or more units per day): no Family History (Parent hip fracture): yes Glucocorticoids (More than 3mos): no (Ex: prednisone, prednisolone, methylprednisolone, dexamethasone, and hydrocortisone). History of Fracture in Adulthood: yes Secondary Osteoporosis: 1. Type 1 Diabetes: no 2. Hyperthyroidism: no 3. Menopause before 45: yes 4. Malnutrition: no 5. Chronic liver disease: no Rheumatoid Arthritis: no Current Tobacco Use: no RISK FACTORS HISTORY OF: Surgery to Spine/Hip(right/left)/Wrist (right/left): no Family History of Osteoporosis: no Active: no Diet low in dairy products/other sources of calcium: yes Postmenopausal woman: yes MEDICATIONS: Additional History: EXAM MEASUREMENTS: Bone mineral densitometry was performed using the [employer] System. Bone mineral density as measured about the Lumbar spine is: ----- L1-L4(G/cm2): 1.266 T Score Values are as follows: ----- L1: -0.7 ----- L2: 0.8 ----- L3: 0.7 ----- L4: 1.4 ----- L1-L4: 0.7 Z Score Values are as follows: ----- L1: 0.6 ----- L2: 2.2 ----- L3: 2.1 ----- L4: 2.8 ----- L1-L4: 2.1 Bone mineral density has: increased 0.7 % since study of: 03.14.2019 Bone mineral density about the R hip (g/cm2): 0.784 Bone mineral density about the L hip (g/cm2): 0.833 T Score values are as follows: -----R Neck: -2.8 -----L Neck: -2.1 -----R Total: -1.8 -----L Total: -1.4 Z Score values are as follows: -----R Neck: -1.3 -----L Neck: -0.7 -----R Total: -0.6 -----L Total: -0.2 Bone mineral density has: decreased -7.6 % since study of: 03.14.2019 FRAX%s: The graph provided illustrates a 39.9 % chance for a major osteoporotic fx and a 11.7% chance for the hips probability for fx in 10 years time. IMPRESSION: Osteopenia (T Score between -2.5 and -1). There is slightly increased risk of fracture and the patient may be considered for treatment. Re-Screen 2-5 years. NOTE: T-SCORE=SD OF THE YOUNG ADULT MEAN.
== END | disposition home or self-care (01) ==
LOC: RADBDWWP 13:12
PROVIDERS: ATTEND Internal Medicine Rheumatology
DX: M32.19 Other organ or system involvement in systemic lupus erythematosus (principal); M81.0 Age-related osteoporosis without current pathological fracture; M85.852 Other specified disorders of bone density and structure, left thigh; Z78.0 Asymptomatic menopausal state
CPT/HCPCS: 77080

== ENCOUNTER → 2023-09-19 | Outpatient (CLI) | payer MEDICARE ==
[2023-09-19 14:12] LABS: African American GFR (CKD) 88 (>60 ml/min/1.73 sqM); Anion Gap 7 mmol/L; Blood Urea Nitrogen 12 mg/dL (7-17); Calcium 9.6 mg/dL (8.4-10.2); Carbon Dioxide 30 mmol/L (22-30); Chloride 103 mmol/L (98-107); Glucose 97 mg/dL (74-99); Non-African American GFR(CKD) 76 (>60 ml/min/1.73 sqM); Potassium 3.6 mmol/L (3.5-5.1); Sodium 140 mmol/L (137-145)
--- NOTE | 2023-09-19 15:24 | CT ---
EXAMINATION TYPE: CT chest w con CT DLP: 302.80 mGycm, Automated exposure control for dose reduction was used. DATE OF EXAM: 09/19/2023 3:11 PM COMPARISON: . Chest radiograph from 04/16/2022, CT abdomen pelvis 08/03/2023 CLINICAL INDICATION:Female, 68 years old with history of R91.1 SOLITARY PULMONARY NODULE; [facility], TECHNIQUE: Multiple axial images were obtained through the chest following the administration of 100 cc of Isovue 300. . Coronal and sagittal reformats reviewed. FINDINGS: LUNGS/ PLEURA: No pleural effusion, focal consolidation, or pneumothorax. Bilateral lower lobe depend ent subsegmental atelectasis. Lateral peripheral left upper lobe 2 mm pulmonary nodule (series 4, jacinto ge [id number]). Previously questioned nodule density within the lateral left lung base is more linear appeara nce today is most consistent with scarring. AIRWAY: Patent and unremarkable.. HEART: The heart is mildly increased in size.. No pericardial effusion.. MEDIASTINUM: No evidence of adenopathy. VASCULATURE: No aortic aneurysm. MUSCULOSKELETAL: No acute osseous abnormalities SOFT TISSUES/LYMPH NODES: Unremarkable. LOWER NECK: No significant findings. UPPER ABDOMEN: Gallbladder is surgically absent. IMPRESSION: 1. No acute thoracic process. 2. Previously questioned nodular density within the lateral left lung base has a more linear appearan ce today and is most consistent with scarring. 3. Tiny 2 mm left lateral upper lobe pulmonary nodule. In a low-risk patient, no follow-up is recomme nded. In a high-risk patient consider optional CT chest in 12 months.
== END | disposition home or self-care (01) ==
LOC: RADCTMAIN 13:31
PROVIDERS: ATTEND Family Medicine
DX: I10 Essential (primary) hypertension (principal); R91.1 Solitary pulmonary nodule
CPT/HCPCS: 80048; 71260; 36415; Q9967

== ENCOUNTER → 2024-04-08 | Outpatient (CLI) | payer MEDICARE ==
--- NOTE | 2024-04-09 20:08 | MM ---
Reason for Exam: Screening (asymptomatic). Last screening mammogram was performed 12 month(s) ago. Patient History: Menarche at age 12. First Full-Term at age 17. Left ovary removed at age 40. Right ovary removed at age 40. Hysterectomy at age 40. Postmenopausal. Estrogen for 10 years from age 40 until age 50. Paternal grandmother had breast cancer, age 60. Risk Values: Bella 5 year model risk: 1.2%. NCI Lifetime model risk: 4.0%. Prior Study Comparison: 12/24/2020 Right Diagnostic Mammogram, [facility]. 01/17/2022 Bilateral Screening Mammogram, [facility]. 03/29/2023 Bilateral MG 3D screening mammo w/cad, [facility]. Tissue Density: The breasts are heterogeneously dense, which may obscure small masses. Findings: Analyzed By CAD. Benign bilateral vascular calcifications. There is no suspicious group of microcalcifications or new suspicious mass in either breast. Overall Assessment: Benign, BI-RAD 2 Management: Screening Mammogram of both breasts in 1 year. . Patient should continue monthly self-breast exams. A clinical breast exam by your physician is recommended on an annual basis. This exam should not preclude additional follow-up of suspicious palpable abnormalities. Note on Bella scores and lifetime risk: 1. A Bella score greater than 3% is considered moderate risk. If this is the case, consider specialist referral to assess eligibility for a risk reducing agent. 2. If overall lifetime risk for the development of breast cancer is 20% or higher, the patient may qualify for future screening with alternating mammogram and breast MRI. Electronically signed and approved by: Homero Diana M.D. Radiologist
== END | disposition home or self-care (01) ==
LOC: RADMAMWWP 13:49
PROVIDERS: ATTEND Family Medicine
DX: Z12.31 Encounter for screening mammogram for malignant neoplasm of breast (principal); Z78.0 Asymptomatic menopausal state; Z80.3 Family history of malignant neoplasm of breast
CPT/HCPCS: 77063; 77067

== ENCOUNTER 2024-05-26 22:22 | Inpatient (IN) | payer MEDICARE ==
--- NOTE | 2024-05-26 22:48 | ED ---
Weakness HPI - General Chief complaint: Skin/Abscess/Foreign Body Stated complaint: Lupus, not eating, dehydrated Time Seen by Provider: 05/26/24 22:34 Source: patient, RN notes reviewed, old records reviewed Mode of arrival: ambulatory Limitations: no limitations - History of Present Illness Initial comments: This is a 68-year-old female for overall not feeling well. Weakness. Patient has history of lupus. Severe pain and rash of the left eye left forehead MD Complaint: generalized weakness, lack of energy, difficulty walking -: days(s) Location: generalized Severity: moderate Severity scale (1-10): 5 Consistency: intermittent Improves with: none Worsens with: none - Related Data Home Medications Medication Instructions Recorded Confirmed Fluticasone Nasal [place] [Flonase 2 spr EA NOSTRIL DAILY 06/04/18 05/27/24 Nasal [place]] Betamethasone Dipropionate 1 applic TOPICAL DAILY 03/11/21 05/27/24 [Betamethasone Dipropionate 0.05% Cream] Biotin 10,000 mcg PO DAILY 03/11/21 05/27/24 Dicyclomine [Bentyl] 40 mg PO BID 03/11/21 05/27/24 Latanoprost [Xelpros] 1 drop LEFT EYE HS 03/11/21 05/27/24 Pantoprazole [Protonix] 40 mg PO BID 03/11/21 05/27/24 Timolol [Betimol 0.5% Ophth Soln] 1 drop LEFT EYE BID 03/11/21 05/27/24 Albuterol Sulfate [Albuterol 1 - 2 puff PO RT-Q4H PRN 05/27/24 05/27/24 Sulfate Hfa] Cetirizine HCl [Zyrtec] 10 mg PO DAILY 05/27/24 05/27/24 Cyclobenzaprine [Flexeril] 10 mg PO HS PRN 05/27/24 05/27/24 Escitalopram Oxalate [Lexapro] 10 mg PO DAILY 05/27/24 05/27/24 Hydroxychloroquine Sulfate 200 mg PO BID 05/27/24 05/27/24 [Plaquenil] Lactase [Lactaid] 3,000 unit PO DAILY 05/27/24 05/27/24 Previous Rx's Medication Instructions Recorded Calcium/Vitamin D 1 tab PO DAILY #0 04/16/22 amLODIPine [Norvasc] 5 mg PO DAILY #30 tab 04/16/22 Acyclovir 800 mg PO Q8H #20 tablet 05/31/24 Gabapentin [Neurontin] 100 mg PO BID #30 cap 05/31/24 Naproxen [Naprosyn] 250 mg PO TID PRN #30 tab 05/31/24 predniSONE 10 mg PO DAILY #30 tab 05/31/24 Allergies Allergy/AdvReac Type Severity Reaction Status Date / Time Milk Containing Products Allergy Diarrhea Verified 05/26/24 22:27 (Dairy) [Dairy] Sulfa (Sulfonamide Allergy Rash/Hives Verified 05/27/24 08:09 Antibiotics) Review of Systems ROS Statement: Those systems with pertinent positive or pertinent negative responses have been documented in the HPI. ROS Other: All systems not noted in ROS Statement are negative. Past Medical History Past Medical History: GERD/Reflux, Hyperlipidemia, Hypertension, Memory Impairment Additional Past Medical History / Comment(s): "Supposed to have sleep study done, snores and does not sleep well." Chronic constipation. Discord Lupus. History of Any Multi-Drug Resistant Organisms: None Reported Past Surgical History: Cholecystectomy, Hysterectomy Past Anesthesia/Blood Transfusion Reactions: No Reported Reaction Past Psychological History: Anxiety, Depression Smoking Status: Never smoker Past Alcohol Use History: Rare Past Drug Use History: None Reported - Past Family History Daughter(s) Family Medical History: Cancer Additional Family Medical History / Comment(s): Leukemia. General Exam Limitations: no limitations General appearance: alert, in no apparent distress Head exam: Present: atraumatic, normocephalic, normal inspection Eye exam: Present: normal appearance, PERRL, EOMI, conjunctival injection, periorbital swelling, other (Severe zoster rash of the left eye). Absent: scleral icterus ENT exam: Present: normal exam, mucous membranes moist Neck exam: Present: normal inspection. Absent: tenderness, meningismus, lymphadenopathy Respiratory exam: Present: normal lung sounds bilaterally. Absent: respiratory distress, wheezes, rales, rhonchi, stridor Cardiovascular Exam: Present: regular rate, normal rhythm, normal heart sounds. Absent: systolic murmur, diastolic murmur, rubs, gallop, clicks GI/Abdominal exam: Present: soft, normal bowel sounds. Absent: distended, tenderness, guarding, rebound, rigid Extremities exam: Present: normal inspection, full ROM, normal capillary refill. Absent: tenderness, pedal edema, joint swelling, calf tenderness Back exam: Present: normal inspection Neurological exam: Present: alert, oriented X3, CN II-XII intact Psychiatric exam: Present: normal affect, normal mood Skin exam: Present: warm, dry, intact, normal color. Absent: rash Course Vital Signs 05/26/24 05/26/24 22:25 23:07 Temperature 98.5 F Pulse Rate 65 66 Respiratory 18 20 Rate Blood Pressure 92/50 134/67 O2 Sat by Pulse 98 98 Oximetry - Reevaluation(s) Reevaluation #1: 05/26/24 22:48 Medical records reviewed Reevaluation #2: Patient symptoms improved here in the ER Reevaluation #3: Patient informed of results and questions answered Reevaluation #4: Was pt. sent in by a medical professional or institution ([facility]ks[facility], CHIEF AIRLINE RADIO OPERATOR, urgent care, hospital, or jail...) When possible be specific @ -no Did you speak to anyone other than the patient for history (EMS, parent, family, police, friend...)? What history was obtained from this source @ -no Did you review nursing and triage notes (agree or disagree)? Why? @ -agree Are old charts reviewed (outside hosp., previous admission, EMS record, old EKG, old radiological studies, urgent care reports/EKG's, jail records)? Report findings @ -yes Differential Diagnosis (chest pain, altered mental status, abdominal pain women, abdominal pain men, vaginal bleeding, weakness, fever, dyspnea, syncope, headache, dizziness, GI bleed, back pain, seizure, CVA, palpatations, mental health, musculoskeletal)? @ -prior EKG interpreted by me (3pts min.). @ -yes X-rays interpreted by me (1pt min.). @ -no CT interpreted by me (1pt min.). @ -no U/S interpreted by me (1pt. min.). @ -no What testing was considered but not performed or refused? (CT, X-rays, U/S, labs)? Why? @ -none What meds were considered but not given or refused? Why? @ -none Did you discuss the management of the patient with other professionals (professionals i.e. Dr., PA, CHIEF AIRLINE RADIO OPERATOR, lab, RT, psych nurse, social sciences department chair, town justice, teacher, examining officer, dependency case manager)? Give summary @ -no Was smoking cessation discussed for >3mins.? @ -no Was critical care preformed (if so, how long)? @ -no Were there social determinants of health that impacted care today? How? (Homelessness, low income, unemployed, alcoholism, drug addiction, transportation, low edu. Level, literacy, decrease access to med. care, prison, rehab)? @ -none Was there de-escalation of care discussed even if they declined (Discuss DNR or withdrawal of care, Hospice)? DNR status @ -no What co-morbidities impacted this encounter? (DM, HTN, Smoking, COPD, CAD, Cancer, CVA, ARF, Chemo, Hep., AIDS, mental health diagnosis, sleep apnea, morbid obesity)? @ -none Was patient admitted / discharged? Hospital course, mention meds given and route, prescriptions, significant lab abnormalities, going to OR and other pertinent info. 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 @ -no Drug Therapy requiring intensive monitoring for toxicity (Heparin, Nitro, Insulin, Cardizem)? @ -no Were any procedures done? @ -no Diagnosis/symptom? @ -Herpes ophthalmicus Acute, or Chronic, or Acute on Chronic? @ -Acute Uncomplicated (without systemic symptoms) or Complicated (systemic symptoms)? @ -Complicated Side effects of treatment? @ -no Exacerbation, Progression, or Severe Exacerbation? @ -exacerbation Poses a threat to life or bodily function? How? (Chest pain, [place], [place], pneumonia, PE, COPD, DKA, ARF, appy, cholecystitis, CVA, Diverticulitis, Homicidal, Suicidal, threat to staff... and all critical care pts) @ -yes severe eye pain herpes ophthalmicus Reevaluation #5: Differential Weakness: Hypoglycemia, shock, sepsis, hyponatremia, anemia, infection, [place], ETOH, adverse medicine reaction, overdose, stroke, this is not meant to be an all-inclusive list. - Consultations Consultation #1: Spoke with admitting who admit this patient consult ophthalmology EKG Findings - EKG Comments: EKG Findings:: EKG is sinus 66 IA 165 QRS 93 QTc 436 - EKG Results: EKG: interpreted by ERMD Medical Decision Making - Medical Decision Making 68 female with left herpes stroke, patient will be admitted for antiviral steroids and ophthalmology consult - Lab Data Result diagrams: 05/27/24 03:39 05/27/24 03:39 Lab Results 05/26/24 05/26/24 05/26/24 Range/Units 23:02 23:02 23:02 WBC 6.4 (3.8-10.6) k/uL RBC 4.51 (3.80-5.40) m/uL Hgb 13.4 (11.4-16.0) gm/dL Hct 40.8 (34.0-46.0) % MCV 90.6 (80.0-100.0) fL MCH 29.6 (25.0-35.0) pg MCHC 32.7 (31.0-37.0) g/dL RDW 14.5 (11.5-15.5) % Plt Count 207 (150-450) k/uL MPV 10.2 Neutrophils % 64 % Lymphocytes % 16 % Monocytes % 16 % Eosinophils % 1 % Basophils % 1 % Neutrophils # 4.1 (1.3-7.7) k/uL Lymphocytes # 1.0 (1.0-4.8) k/uL Monocytes # 1.1 H (0-1.0) k/uL Eosinophils # 0.0 (0-0.7) k/uL Basophils # 0.0 (0-0.2) k/uL PT 10.8 (10.0-12.5) sec INR 1.0 (<1.2) APTT 19.1 L (22.0-30.0) sec Sodium 138 (137-145) mmol/L Potassium 3.7 (3.5-5.1) mmol/L Chloride 106 (98-107) mmol/L Carbon Dioxide 22 (22-30) mmol/L Anion Gap 10 mmol/L BUN 21 H (7-17) mg/dL Creatinine 0.78 (0.52-1.04) mg/dL Est GFR (CKD-EPI)AfAm >90 (>60 ml/min/1.73 sqM) Est GFR (CKD-EPI)NonAf 79 (>60 ml/min/1.73 sqM) Glucose 97 (74-99) mg/dL Plasma Lactic Acid Ziggy (0.7-2.0) mmol/L Calcium 10.0 (8.4-10.2) mg/dL Phosphorus 3.1 (2.5-4.5) mg/dL Magnesium 1.8 (1.6-2.3) mg/dL Total Bilirubin 0.5 (0.2-1.3) mg/dL AST 30 (14-36) U/L ALT 15 (4-34) U/L Alkaline Phosphatase 75 (38-126) U/L Troponin I (0.000-0.034) ng/mL Total Protein 7.2 (6.3-8.2) g/dL Albumin 4.1 (3.5-5.0) g/dL 05/26/24 05/26/24 Range/Units 23:02 23:02 WBC (3.8-10.6) k/uL RBC (3.80-5.40) m/uL Hgb (11.4-16.0) gm/dL Hct (34.0-46.0) % MCV (80.0-100.0) fL MCH (25.0-35.0) pg MCHC (31.0-37.0) g/dL RDW (11.5-15.5) % Plt Count (150-450) k/uL MPV Neutrophils % % Lymphocytes % % Monocytes % % Eosinophils % % Basophils % % Neutrophils # (1.3-7.7) k/uL Lymphocytes # (1.0-4.8) k/uL Monocytes # (0-1.0) k/uL Eosinophils # (0-0.7) k/uL Basophils # (0-0.2) k/uL PT (10.0-12.5) sec INR (<1.2) APTT (22.0-30.0) sec Sodium (137-145) mmol/L Potassium (3.5-5.1) mmol/L Chloride (98-107) mmol/L Carbon Dioxide (22-30) mmol/L Anion Gap mmol/L BUN (7-17) mg/dL Creatinine (0.52-1.04) mg/dL Est GFR (CKD-EPI)AfAm (>60 ml/min/1.73 sqM) Est GFR (CKD-EPI)NonAf (>60 ml/min/1.73 sqM) Glucose (74-99) mg/dL Plasma Lactic Acid Ziggy 1.4 (0.7-2.0) mmol/L Calcium (8.4-10.2) mg/dL Phosphorus (2.5-4.5) mg/dL Magnesium (1.6-2.3) mg/dL Total Bilirubin (0.2-1.3) mg/dL AST (14-36) U/L ALT (4-34) U/L Alkaline Phosphatase (38-126) U/L Troponin I <0.012 (0.000-0.034) ng/mL Total Protein (6.3-8.2) g/dL Albumin (3.5-5.0) g/dL - EKG Data -: EKG Interpreted by Me Disposition Clinical Impression: Herpes zoster ophthalmicus of left eye Disposition: ADMITTED IP TO THIS HOSP Is patient prescribed a controlled substance at d/c from ED?: No Time of Disposition: 23:55
[2024-05-26] MEDS: SODIUM CHLORIDE 0.9% 1,000 ML IV STA (23:26)
[2024-05-26] MEDS ORDERED: ACYCLOVIR 400 MG/10 ML CUP PO SCH (23:45)
[2024-05-26] MEDS ORDERED: MORPHINE SULFATE 4 MG/ML SYRINGE IV PRN (23:58)
[2024-05-26] MEDS ORDERED: ONDANSETRON 4 MG/2 ML VIAL IVP PRN (23:58)
[2024-05-26] MEDS ORDERED: NALOXONE 0.4 MG/ML 1 ML VIAL IV PRN (23:58)
[2024-05-27 00:23] LABS: Basophils % (A) 1 %; Eosinophils % (A) 1 %; HCT 40.8 % (34.0-46.0); HGB 13.4 gm/dL (11.4-16.0); Lymphocytes % (A) 16 %; MCH 29.6 pg (25.0-35.0); MCHC 32.7 g/dL (31.0-37.0); MCV 90.6 fL (80.0-100.0); Mean Platelet Volume 10.2; Monocytes # (A) 1.1 k/uL (0-1.0); Monocytes % (A) 16 %; Neutrophils # (A) 4.1 k/uL (1.3-7.7); Neutrophils % (A) 64 %; Platelet Count 207 k/uL (150-450); RBC 4.51 m/uL (3.80-5.40); RDW 14.5 % (11.5-15.5); WBC 6.4 k/uL (3.8-10.6)
[2024-05-27 00:29] LABS: Prothrombin Time 10.8 sec (10.0-12.5)
[2024-05-27 00:42] LABS: ALT 15 U/L (4-34); AST 30 U/L (14-36); African American GFR (CKD) >90 (>60 ml/min/1.73 sqM); Albumin 4.1 g/dL (3.5-5.0); Alkaline Phosphatase 75 U/L (38-126); Anion Gap 10 mmol/L; Blood Urea Nitrogen 21 mg/dL (7-17); Carbon Dioxide 22 mmol/L (22-30); Chloride 106 mmol/L (98-107); Glucose 97 mg/dL (74-99); Magnesium 1.8 mg/dL (1.6-2.3); Non-African American GFR(CKD) 79 (>60 ml/min/1.73 sqM); Phosphorus 3.1 mg/dL (2.5-4.5); Potassium 3.7 mmol/L (3.5-5.1); Sodium 138 mmol/L (137-145); Total Bilirubin 0.5 mg/dL (0.2-1.3); Total Protein 7.2 g/dL (6.3-8.2)
[2024-05-27 00:43] LABS: Partial Thromboplastin Time 19.1 sec (22.0-30.0)
[2024-05-27] MEDS: DEXAMETHASONE SOD PHOSPHATE 10 MG/ML 1 ML VIAL IVP STA (00:57)
[2024-05-27] MEDS: SODIUM CHLORIDE 0.9% 1,000 ML IV SCH (00:58)
[2024-05-27 04:38] LABS: Basophils % (A) 1 %; Eosinophils % (A) 0 %; HCT 38.8 % (34.0-46.0); HGB 12.6 gm/dL (11.4-16.0); Lymphocytes # (A) 0.4 k/uL (1.0-4.8); Lymphocytes % (A) 10 %; MCH 29.8 pg (25.0-35.0); MCHC 32.5 g/dL (31.0-37.0); MCV 91.6 fL (80.0-100.0); Monocytes # (A) 0.2 k/uL (0-1.0); Monocytes % (A) 5 %; Neutrophils # (A) 3.8 k/uL (1.3-7.7); Neutrophils % (A) 82 %; Platelet Count 188 k/uL (150-450); RBC 4.24 m/uL (3.80-5.40); RDW 14.1 % (11.5-15.5); WBC 4.7 k/uL (3.8-10.6)
[2024-05-27 04:51] LABS: ALT 14 U/L (4-34); AST 23 U/L (14-36); African American GFR (CKD) >90 (>60 ml/min/1.73 sqM); Albumin 3.6 g/dL (3.5-5.0); Alkaline Phosphatase 76 U/L (38-126); Anion Gap 8 mmol/L; Blood Urea Nitrogen 17 mg/dL (7-17); Calcium 9.2 mg/dL (8.4-10.2); Carbon Dioxide 21 mmol/L (22-30); Chloride 109 mmol/L (98-107); Glucose 112 mg/dL (74-99); Magnesium 1.8 mg/dL (1.6-2.3); Non-African American GFR(CKD) >90 (>60 ml/min/1.73 sqM); Potassium 3.6 mmol/L (3.5-5.1); Sodium 138 mmol/L (137-145); Total Bilirubin 0.4 mg/dL (0.2-1.3); Total Protein 6.3 g/dL (6.3-8.2)
[2024-05-27] MEDS: DEXAMETHASONE SOD PHOSPHATE 4 MG/ML 1 ML VIAL IVP SCH (05:53)
[2024-05-27] MEDS ORDERED: ALBUTEROL HFA INHALER INHALATION PRN (10:29)
[2024-05-27] MEDS: ENOXAPARIN 40 MG/0.4 ML SYRINGE SQ SCH (11:04)
[2024-05-27] MEDS: ESCITALOPRAM 10 MG TAB PO SCH (11:04)
[2024-05-27] MEDS: CYCLOBENZAPRINE 10 MG TAB PO PRN (11:04)
[2024-05-27] MEDS: amLODIPine 5 MG TAB PO SCH (11:04)
[2024-05-27] MEDS: LORATADINE 10 MG TAB PO SCH (11:04)
[2024-05-27] MEDS: DICYCLOMINE 20 MG TAB PO SCH (11:05)
[2024-05-27] MEDS: NON FORMULARY DRUG (Lactase [Lactaid] 3,000 UNIT Tablet) PO SCH (11:34)
[2024-05-27] MEDS: NON FORMULARY DRUG (Biotin [Biotin] 10,000 MCG Capsule) PO SCH (11:34)
[2024-05-27] MEDS: TIMOLOL 0.5% OPHTH DROPS 5 ML BTL LEFT EYE SCH (11:45)
[2024-05-27] MEDS: HYDROXYCHLOROQUINE SULFATE 200 MG TAB PO SCH (11:45)
[2024-05-27] MEDS: PANTOPRAZOLE 40 MG TABLET PO SCH (11:45)
[2024-05-27] MEDS: NAPROXEN 250 MG TAB PO PRN (15:18)
[2024-05-27 15:30] VITALS: BMI 24.2
--- NOTE | 2024-05-27 16:53 | P.HPIM ---
History of Present Illness H&P Date: 05/27/24 Chief Complaint: Painful rash to left forehead This is a pleasant 68-year-old patient, follows with Dr. Gaspar. Chronic stable medical condition include GERD, hyperlipidemia, hypertension, some cognitive impairment, anxiety depression. About 4 days ago that is on patient noticed some tingling tightness on the left forehead. The following day patient noted a red rash on the left forehead. Over the weekend it became rather painful and blistering. Patient develops a fever and chills. Eyelids Gotten swollen. Diagnosed with herpes zoster. Started on IV acyclovir in the ER. Unable to really open the eyelids because of swelling. Ophthalmology consulted. Patient did have chickenpox as a child. Review of systems: GEN.: Fever chills tired EYES: As above HEENT: None NECK: None RESPIRATORY: None CARDIOVASCULAR: None GASTROINTESTINAL: None GENITOURINARY: None MUSCULOSKELETAL: [Arthritic pain especially in the knees LYMPHATICS: None HEMATOLOGICAL: None PSYCHIATRY: Bit forgetful NEUROLOGICAL: None Social history: Grandson lives with her. No smoking no alcohol. Physical examination: VITAL SIGNS: 98.1, 76, 13, 112/61, 95% room GENERAL: BMI 24.2, reclining in bed. EYES: Pupils equal. Left periorbital swelling unable to open the eyes l. HEENT: [External appearance of nose and ears normal, oral cavity grossly normal. Left forehead blisters on inflamed base tender. In the V1 distribution. Extending down to over the eyes periorbital. Eyelid swollen. Can barely look at the eye itself NECK: JVD not raised; masses not palpable. HEART: First and second heart sounds are normal; no edema. LUNGS: Respiratory rate normal; clear to auscultation. ABDOMEN: Soft, nontender, liver spleen not palpable, no masses palpable. PSYCH: Alert and oriented x3; mood and affect annie l. MUSCULOSKELETAL:No Clubbing/cyanosis;muscles-grossly intact. OA NEUROLOGICAL: Cranial nerves grossly intact; no facial asymmetry, power and sensation grossly intact. LYMPHATICS: No lymph nodes palpable in the axilla and neck INVESTIGATIONS, reviewed in the clinical context: May 27: White count 4.7 hemoglobin 12.6 platelets 188 sodium 138 potassium 3.6 creatinine 0.67 Assessment plan: -Acute severe herpes zoster in the V1 distribution. Systemic symptoms of fever and chills. None recorded here. IV acyclovir 680 mg Q8. IV Decadron -Possible herpes zoster infection affecting the left eye. IV acyclovir. Ophthalmology consulted -GERD Protonix 40 mg twice daily -Essential hypertension Amlodipine 5 mg a day Lopressor 25 mg twice daily -Depression anxiety Lexapro 10 mg a day -Full code -Care was discussed with the patient. Questions answered. Subcu Lovenox. Ophthalmology consulted. Past Medical History Past Medical History: GERD/Reflux, Hyperlipidemia, Hypertension, Memory Imp airment Additional Past Medical History / Comment(s): "Supposed to have sleep study done, snores and does not sleep well." Chronic constipation. Discord Lupus. History of Any Multi-Drug Resistant Organisms: None Reported Past Surgical History: Cholecystectomy, Hysterectomy Past Anesthesia/Blood Transfusion Reactions: No Reported Reaction Past Psychological History: Anxiety, Depression Smoking Status: Never smoker Past Alcohol Use History: Rare Past Drug Use History: None Reported - Past Family History Daughter(s) Family Medical History: Cancer Additional Family Medical History / Comment(s): Leukemia. Medications and Allergies Home Medications Medication Instructions Recorded Confirmed Type Fluticasone Nasal [place] [Flonase 2 spr EA NOSTRIL DAILY 06/04/18 05/27/24 History Nasal [place]] Betamethasone Dipropionate 1 applic TOPICAL DAILY 03/11/21 05/27/24 History [Betamethasone Dipropionate 0.05% Cream] Biotin 10,000 mcg PO DAILY 03/11/21 05/27/24 History Dicyclomine [Bentyl] 40 mg PO BID 03/11/21 05/27/24 History Latanoprost [Xelpros] 1 drop LEFT EYE HS 03/11/21 05/27/24 History Pantoprazole [Protonix] 40 mg PO BID 03/11/21 05/27/24 History Timolol [Betimol 0.5% Ophth Soln] 1 drop LEFT EYE BID 03/11/21 05/27/24 History Calcium/Vitamin D 1 tab PO DAILY #0 04/16/22 05/27/24 Rx amLODIPine [Norvasc] 5 mg PO DAILY #30 tab 04/16/22 05/27/24 Rx Albuterol Sulfate [Albuterol 1 - 2 puff PO RT-Q4H PRN 05/27/24 05/27/24 History Sulfate Hfa] Cetirizine HCl [Zyrtec] 10 mg PO DAILY 05/27/24 05/27/24 History Cyclobenzaprine [Flexeril] 10 mg PO HS PRN 05/27/24 05/27/24 History Escitalopram Oxalate [Lexapro] 10 mg PO DAILY 05/27/24 05/27/24 History Famotidine [Pepcid] 20 mg PO HS PRN 05/27/24 05/27/24 History Hydroxychloroquine Sulfate 200 mg PO BID 05/27/24 05/27/24 History [Plaquenil] Lactase [Lactaid] 3,000 unit PO DAILY 05/27/24 05/27/24 History Metoprolol Tartrate [Lopressor] 25 mg PO BID 05/27/24 05/27/24 History Allergies Allergy/AdvReac Type Severity Reaction Status Date / Time Milk Containing Products Allergy Diarrhea Verified 05/26/24 22:27 (Dairy) [Dairy] Sulfa (Sulfonamide Allergy Rash/Hives Verified 05/27/24 08:09 Antibiotics) Physical Exam Vitals: Vital Signs Temp Pulse Pulse Resp BP BP Pulse Ox 05/27/24 08:00 68 18 05/27/24 07:00 98.1 F 76 13 112/61 95 05/27/24 02:00 66 05/27/24 01:35 98.9 F 66 16 116/53 99 05/27/24 01:07 97.9 F 72 17 128/78 99 05/26/24 23:07 66 20 134/67 98 05/26/24 22:25 98.5 F 65 18 92/50 98 Intake and Output 05/26/24 05/27/24 05/27/24 22:59 06:59 14:59 Other: Voiding Method Toilet Toilet # Voids 1 Weight 68.039 kg 68.039 kg Results CBC & Chem 7: 05/27/24 03:39 05/27/24 03:39 Labs: Abnormal Lab Results - Last 24 Hours (Table) 05/26/24 05/26/24 05/26/24 Range/Units 23:02 23:02 23:02 Lymphocytes # (1.0-4.8) k/uL Monocytes # 1.1 H (0-1.0) k/uL APTT 19.1 L (22.0-30.0) sec Chloride (98-107) mmol/L Carbon Dioxide (22-30) mmol/L BUN 21 H (7-17) mg/dL Glucose (74-99) mg/dL 05/27/24 05/27/24 Range/Units 03:39 03:39 Lymphocytes # 0.4 L (1.0-4.8) k/uL Monocytes # (0-1.0) k/uL APTT (22.0-30.0) sec Chloride 109 H (98-107) mmol/L Carbon Dioxide 21 L (22-30) mmol/L BUN (7-17) mg/dL Glucose 112 H (74-99) mg/dL Thrombosis Risk Factor Assmnt - Choose All That Apply Each Risk Factor Represents 2 Points: Age 61-74 years Thrombosis Risk Factor Assessment Total Risk Factor Score: 2 Thrombosis Risk Factor Assessment Level: Low Risk
[2024-05-27] MEDS: LATANOPROST 0.005% OPHTH DROPS 2.5 ML BTL LEFT EYE SCH (20:27)
--- NOTE | 2024-05-28 18:31 | P.PN ---
Progress Note - Text Progress Note Date: 05/28/24 Chief Complaint: Painful rash to left forehead This is a pleasant 68-year-old patient, follows with Dr. Gaspar. Chronic stable medical condition include GERD, hyperlipidemia, hypertension, some cognitive impairment, anxiety depression. About 4 days ago that is on patient noticed some tingling tightness on the left forehead. The following day patient noted a red rash on the left forehead. Over the weekend it became rather painful and blistering. Patient develops a fever and chills. Eyelids Gotten swollen. Diagnosed with herpes zoster. Started on IV acyclovir in the ER. Unable to really open the eyelids because of swelling. Ophthalmology consulted. Patient did have chickenpox as a child. May 28: Blisters remain prominent. Some tenderness. Remains on IV acyclovir. Decreased appetite. Left periapical swelling significant. Barely eyes open Active Medications Albuterol Sulfate (Albuterol Hfa Inhaler) 1 - 2 puff INHALATION RT-Q4H PRN PRN Reason: Shortness Of Breath Amlodipine Besylate (Amlodipine 5 Mg Tab) 5 mg PO DAILY [facility] Last Admin: 05/28/24 07:37 Dose: 5 mg Cyclobenzaprine HCl (Cyclobenzaprine 10 Mg Tab) 10 mg PO HS PRN PRN Reason: Muscle Spasm Last Admin: 05/27/24 11:04 Dose: 10 mg Dexamethasone Sodium Phosphate (Dexamethasone Sod Phosphate 4 Mg/Ml 1 Ml Vial) 4 mg IVP Q8H [facility] Dicyclomine HCl (Dicyclomine 20 Mg Tab) 40 mg PO BID [facility] Last Admin: 05/28/24 07:37 Dose: 40 mg Enoxaparin Sodium (Enoxaparin 40 Mg/0.4 Ml Syringe) 40 mg SQ DAILY [facility] Last Admin: 05/28/24 07:37 Dose: 40 mg Escitalopram Oxalate (Escitalopram 10 Mg Tab) 10 mg PO DAILY [facility] Last Admin: 05/28/24 07:37 Dose: 10 mg Famotidine (Famotidine 20 Mg Tab) 20 mg PO HS PRN PRN Reason: gerd Hydroxychloroquine Sulfate (Hydroxychloroquine Sulfate 200 Mg Tab) 200 mg PO BID [facility] Last Admin: 05/28/24 07:37 Dose: 200 mg Sodium Chloride (Saline 0.9%) 1,000 mls @ 20 mls/hr IV .Q24H [facility] Last Admin: 05/28/24 01:01 Dose: Not Given Acyclovir Sodium 680 mg/ (Sodium Chloride) 113.6 mls @ 100 mls/hr IVPB Q8HR [facility] Last Admin: 05/28/24 15:57 Dose: 100 mls/hr Latanoprost (Latanoprost 0.005% Ophth Drops 2.5 Ml Btl) 1 drops LEFT EYE HS [facility] Last Admin: 05/27/24 20:27 Dose: 1 drops Loratadine (Loratadine 10 Mg Tab) 10 mg PO DAILY [facility] Last Admin: 05/28/24 08:04 Dose: Not Given Morphine Sulfate (Morphine Sulfate 4 Mg/Ml Syringe) 4 mg IV Q4HR PRN PRN Reason: Severe Pain (Scale 7 to 10) Naloxone HCl (Naloxone 0.4 Mg/Ml 1 Ml Vial) 0.2 mg IV Q2M PRN PRN Reason: Opioid Reversal Naproxen (Naproxen 250 Mg Tab) 250 mg PO TID PRN PRN Reason: pain Last Admin: 05/28/24 10:11 Dose: 250 mg Ondansetron HCl (Ondansetron 4 Mg/2 Ml Vial) 4 mg IVP Q8HR PRN PRN Reason: Nausea And Vomiting Pantoprazole Sodium (Pantoprazole 40 Mg Tablet) 40 mg PO BID [facility] Last Admin: 05/28/24 07:37 Dose: 40 mg Timolol Maleate (Timolol 0.5% Ophth Drops 5 Ml Btl) 1 drops LEFT EYE BID [facility] Last Admin: 05/28/24 07:38 Dose: 1 drops Social history: Grandson lives with her. No smoking no alcohol. Physical examination: VITAL SIGNS: 97.2, 66, 15, 129 x 69, 96% room GENERAL: BMI 24.2, reclining in bed. EYES: Pupils equal. Left periorbital swelling unable to open the eyes l. HEENT: [External appearance of nose and ears normal, oral cavity grossly normal. Left forehead blisters on inflamed base tender. In the V1 distribution. Extending down to over the eyes periorbital. Eyelid swollen. Can barely look at the eye itself NECK: JVD not raised; masses not palpable. HEART: First and second heart sounds are normal; no edema. LUNGS: Respiratory rate normal; clear to auscultation. ABDOMEN: Soft, nontender, liver spleen not palpable, no masses palpable. PSYCH: Alert and oriented x3; mood and affect annie l. MUSCULOSKELETAL:No Clubbing/cyanosis;muscles-grossly intact. OA INVESTIGATIONS, reviewed in the clinical context: Procalcitonin 0.06 May 27: White count 4.7 hemoglobin 12.6 platelets 188 sodium 138 potassium 3.6 creatinine 0.67 Assessment plan: -Acute severe herpes zoster in the V1 distribution. Systemic symptoms of fever and chills. None recorded here.: Slow to respond IV acyclovir 680 mg Q8. IV Decadron 4 mg every 8 Procalcitonin 0.06 -Possible herpes zoster infection affecting the left eye. IV acyclovir. Ophthalmology consulted -GERD Protonix 40 mg twice daily -Essential hypertension Amlodipine 5 mg a day Lopressor 25 mg twice daily -Depression anxiety Lexapro 10 mg a day -Full code Patient was set up in a chair every shift. Continue current treatment plan.
[2024-05-28] MEDS: DEXAMETHASONE SOD PHOSPHATE 4 MG/ML 1 ML VIAL IVP SCH (18:42)
--- NOTE | 2024-05-29 15:40 | P.PN ---
Progress Note - Text Progress Note Date: 05/29/24 Chief Complaint: Painful rash to left forehead This is a pleasant 68-year-old patient, follows with Dr. Gaspar. Chronic stable medical condition include GERD, hyperlipidemia, hypertension, some cognitive impairment, anxiety depression. About 4 days ago that is on patient noticed some tingling tightness on the left forehead. The following day patient noted a red rash on the left forehead. Over the weekend it became rather painful and blistering. Patient develops a fever and chills. Eyelids Gotten swollen. Diagnosed with herpes zoster. Started on IV acyclovir in the ER. Unable to really open the eyelids because of swelling. Ophthalmology consulted. Patient did have chickenpox as a child. May 28: Blisters remain prominent. Some tenderness. Remains on IV acyclovir. Decreased appetite. Left periapical swelling significant. Barely eyes open May 29: Blisters remain prominent crusting started. Some facial swelling especially in the left side. Cut back dexamethasone to 4 mg twice daily and switch to p.o. Have the patient sit up in a chair. Told the nurse to do some local toilet to remove crust from the eyelashes and eyebrows At Active Medications Albuterol Sulfate (Albuterol Hfa Inhaler) 1 - 2 puff INHALATION RT-Q4H PRN PRN Reason: Shortness Of Breath Amlodipine Besylate (Amlodipine 5 Mg Tab) 5 mg PO DAILY [facility] Last Admin: 05/29/24 09:26 Dose: 5 mg Cyclobenzaprine HCl (Cyclobenzaprine 10 Mg Tab) 10 mg PO HS PRN PRN Reason: Muscle Spasm Last Admin: 05/28/24 23:58 Dose: 10 mg Dexamethasone (Dexamethasone 4 Mg Tab) 4 mg PO BID [facility] Dicyclomine HCl (Dicyclomine 20 Mg Tab) 40 mg PO BID [facility] Last Admin: 05/29/24 09:27 Dose: 40 mg Enoxaparin Sodium (Enoxaparin 40 Mg/0.4 Ml Syringe) 40 mg SQ DAILY [facility] Last Admin: 05/29/24 09:27 Dose: 40 mg Escitalopram Oxalate (Escitalopram 10 Mg Tab) 10 mg PO DAILY [facility] Last Admin: 05/29/24 09:26 Dose: 10 mg Famotidine (Famotidine 20 Mg Tab) 20 mg PO HS PRN PRN Reason: gerd Hydroxychloroquine Sulfate (Hydroxychloroquine Sulfate 200 Mg Tab) 200 mg PO BID [facility] Last Admin: 05/29/24 09:26 Dose: 200 mg Sodium Chloride (Saline 0.9%) 1,000 mls @ 20 mls/hr IV .Q24H [facility] Last Admin: 05/29/24 03:17 Dose: Not Given Acyclovir Sodium 680 mg/ (Sodium Chloride) 113.6 mls @ 100 mls/hr IVPB Q8HR [facility] Last Admin: 05/29/24 09:25 Dose: 100 mls/hr Latanoprost (Latanoprost 0.005% Ophth Drops 2.5 Ml Btl) 1 drops LEFT EYE HS [facility] Last Admin: 05/28/24 20:35 Dose: Not Given Loratadine (Loratadine 10 Mg Tab) 10 mg PO DAILY [facility] Last Admin: 05/29/24 09:26 Dose: 10 mg Morphine Sulfate (Morphine Sulfate 4 Mg/Ml Syringe) 4 mg IV Q4HR PRN PRN Reason: Severe Pain (Scale 7 to 10) Naloxone HCl (Naloxone 0.4 Mg/Ml 1 Ml Vial) 0.2 mg IV Q2M PRN PRN Reason: Opioid Reversal Naproxen (Naproxen 250 Mg Tab) 250 mg PO TID PRN PRN Reason: pain Last Admin: 05/29/24 03:19 Dose: 250 mg Ondansetron HCl (Ondansetron 4 Mg/2 Ml Vial) 4 mg IVP Q8HR PRN PRN Reason: Nausea And Vomiting Pantoprazole Sodium (Pantoprazole 40 Mg Tablet) 40 mg PO BID [facility] Last Admin: 05/29/24 09:26 Dose: 40 mg Timolol Maleate (Timolol 0.5% Ophth Drops 5 Ml Btl) 1 drops LEFT EYE BID [facility] Last Admin: 05/29/24 09:27 Dose: Not Given Social history: Grandson lives with her. No smoking no alcohol. Physical examination: VITAL SIGNS: 98.4, 76, 16, 128/71, 96% room air GENERAL: BMI 24.2, reclining in bed. EYES: Pupils equal. Left periorbital swelling unable to open the eyes l. HEENT: [External appearance of nose and ears normal, oral cavity grossly normal. Left forehead blisters on inflamed base tender. In the V1 distribution. Extending down to over the eyes periorbital. Eyelid swollen. Can barely look at the eye itself NECK: JVD not raised; masses not palpable. HEART: First and second heart sounds are normal; no edema. LUNGS: Respiratory rate normal; clear to auscultation. ABDOMEN: Soft, nontender, liver spleen not palpable, no masses palpable. PSYCH: Alert and oriented x3; mood and affect annie l. MUSCULOSKELETAL:No Clubbing/cyanosis;muscles-grossly intact. OA INVESTIGATIONS, reviewed in the clinical context: Procalcitonin 0.06 May 27: White count 4.7 hemoglobin 12.6 platelets 188 sodium 138 potassium 3.6 creatinine 0.67 Assessment plan: -Acute severe herpes zoster in the V1 distribution. Systemic symptoms of fever and chills. None recorded here.: Slow to respond IV acyclovir 680 mg Q8. Changed From IV to 4 Mg Twice Daily Procalcitonin 0.06 -Possible herpes zoster infection affecting the left eye. IV acyclovir. Ophthalmology consulted -GERD Protonix 40 mg twice daily -Essential hypertension Amlodipine 5 mg a day Lopressor 25 mg twice daily -Depression anxiety Lexapro 10 mg a day -Full code Continue IV acyclovir. Changed to oral prednisone 4 mg twice daily. Patient sit up in a chair.
[2024-05-29] MEDS: dexAMETHasone 4 MG TAB PO SCH (21:35)
[2024-05-30] MEDS: FAMOTIDINE 20 MG TAB PO PRN (15:57)
[2024-05-30] MEDS ORDERED: CALCIUM CARBONATE 500 MG CHEWABLE PO PRN (16:22)
--- NOTE | 2024-05-30 20:26 | P.PN ---
Progress Note - Text Progress Note Date: 05/30/24 Chief Complaint: Painful rash to left forehead This is a pleasant 68-year-old patient, follows with Dr. Gaspar. Chronic stable medical condition include GERD, hyperlipidemia, hypertension, some cognitive impairment, anxiety depression. About 4 days ago that is on patient noticed some tingling tightness on the left forehead. The following day patient noted a red rash on the left forehead. Over the weekend it became rather painful and blistering. Patient develops a fever and chills. Eyelids Gotten swollen. Diagnosed with herpes zoster. Started on IV acyclovir in the ER. Unable to really open the eyelids because of swelling. Ophthalmology consulted. Patient did have chickenpox as a child. May 28: Blisters remain prominent. Some tenderness. Remains on IV acyclovir. Decreased appetite. Left periapical swelling significant. Barely eyes open May 29: Blisters remain prominent crusting started. Some facial swelling especially in the left side. Cut back dexamethasone to 4 mg twice daily and switch to p.o. Have the patient sit up in a chair. Told the nurse to do some local toilet to remove crust from the eyelashes and eyebrows May 30: Blisters have started to settle down. Left eye periorbital swelling is coming down. Eyes open. Very slight conjunctival injection on the left side. Denies pain. In the eye. Cannot see well. Eating fair. Active Medications Albuterol Sulfate (Albuterol Hfa Inhaler) 1 - 2 puff INHALATION RT-Q4H PRN PRN Reason: Shortness Of Breath Amlodipine Besylate (Amlodipine 5 Mg Tab) 5 mg PO DAILY [facility] Last Admin: 05/30/24 08:25 Dose: 5 mg Calcium Carbonate/Glycine (Calcium Carbonate 500 Mg Chewable) 500 mg PO TID PRN PRN Reason: Heartburn Cyclobenzaprine HCl (Cyclobenzaprine 10 Mg Tab) 10 mg PO HS PRN PRN Reason: Muscle Spasm Last Admin: 05/29/24 21:39 Dose: 10 mg Dexamethasone (Dexamethasone 4 Mg Tab) 4 mg PO BID [facility] Stop: 05/30/24 23:59 Last Admin: 05/30/24 08:25 Dose: 4 mg Dexamethasone (Dexamethasone 4 Mg Tab) 4 mg PO DAILY [facility] Dicyclomine HCl (Dicyclomine 20 Mg Tab) 40 mg PO BID [facility] Last Admin: 05/30/24 08:26 Dose: 40 mg Enoxaparin Sodium (Enoxaparin 40 Mg/0.4 Ml Syringe) 40 mg SQ DAILY [facility] Last Admin: 05/30/24 08:25 Dose: 40 mg Escitalopram Oxalate (Escitalopram 10 Mg Tab) 10 mg PO DAILY [facility] Last Admin: 05/30/24 08:25 Dose: 10 mg Famotidine (Famotidine 20 Mg Tab) 20 mg PO HS PRN PRN Reason: gerd Last Admin: 05/30/24 15:57 Dose: 20 mg Hydroxychloroquine Sulfate (Hydroxychloroquine Sulfate 200 Mg Tab) 200 mg PO BID [facility] Last Admin: 05/30/24 08:25 Dose: 200 mg Sodium Chloride (Saline 0.9%) 1,000 mls @ 20 mls/hr IV .Q24H [facility] Last Admin: 05/30/24 00:55 Dose: 20 mls/hr Acyclovir Sodium 680 mg/ (Sodium Chloride) 113.6 mls @ 100 mls/hr IVPB Q8HR [facility] Last Admin: 05/30/24 15:56 Dose: 100 mls/hr Latanoprost (Latanoprost 0.005% Ophth Drops 2.5 Ml Btl) 1 drops LEFT EYE HS [facility] Last Admin: 05/30/24 19:54 Dose: Not Given Loratadine (Loratadine 10 Mg Tab) 10 mg PO DAILY [facility] Last Admin: 05/30/24 08:25 Dose: 10 mg Morphine Sulfate (Morphine Sulfate 4 Mg/Ml Syringe) 4 mg IV Q4HR PRN PRN Reason: Severe Pain (Scale 7 to 10) Naloxone HCl (Naloxone 0.4 Mg/Ml 1 Ml Vial) 0.2 mg IV Q2M PRN PRN Reason: Opioid Reversal Naproxen (Naproxen 250 Mg Tab) 250 mg PO TID PRN PRN Reason: pain Last Admin: 05/30/24 15:57 Dose: 250 mg Ondansetron HCl (Ondansetron 4 Mg/2 Ml Vial) 4 mg IVP Q8HR PRN PRN Reason: Nausea And Vomiting Pantoprazole Sodium (Pantoprazole 40 Mg Tablet) 40 mg PO BID [facility] Last Admin: 05/30/24 08:25 Dose: 40 mg Timolol Maleate (Timolol 0.5% Ophth Drops 5 Ml Btl) 1 drops LEFT EYE BID [facility] Last Admin: 05/30/24 19:54 Dose: Not Given Social history: Grandson lives with her. No smoking no alcohol. Physical examination: VITAL SIGNS: 98, 78, 16, 126 x 70, 95% room air GENERAL: Sitting up in chair EYES: Pupils equal. Left periorbital swelling has come down. Able to open the eye. Very slight left conjunctival injection. HEENT: [External appearance of nose and ears normal, oral cavity grossly normal. Left forehead blisters on inflamed base tender. In the V1 distribution. Extending down to over the eyes periorbital. Left eye much better open. Decreased swelling redness around the lesions NECK: JVD not raised; masses not palpable. HEART: First and second heart sounds are normal; no edema. LUNGS: Respiratory rate normal; clear to auscultation. ABDOMEN: Soft, nontender, liver spleen not palpable, no masses palpable. PSYCH: Alert and oriented x3; mood and affect annie l. MUSCULOSKELETAL:No Clubbing/cyanosis;muscles-grossly intact. OA INVESTIGATIONS, reviewed in the clinical context: Procalcitonin 0.06 May 27: White count 4.7 hemoglobin 12.6 platelets 188 sodium 138 potassium 3.6 creatinine 0.67 Assessment plan: -Acute severe herpes zoster in the V1 distribution. Systemic symptoms of fever and chills. None recorded here.: Improving IV acyclovir 680 mg Q8. Changed From IV to 4 Mg Twice Daily Procalcitonin 0.06 -Possible herpes zoster infection affecting the left eye. IV acyclovir. Ophthalmology consulted -GERD Protonix 40 mg twice daily -Essential hypertension Amlodipine 5 mg a day Lopressor 25 mg twice daily -Depression anxiety Lexapro 10 mg a day -Full code Continue IV acyclovir. Change dexamethasone to 4 mg daily from tomorrow. Possible discharge tomorrow.
[2024-05-31 08:03] VITALS: BP 130/76; PULSE 70; RESP 18; TEMP 98.6
[2024-05-31] MEDS: dexAMETHasone 4 MG TAB PO SCH (08:25)
--- NOTE | 2024-05-31 13:29 | P.DS ---
Providers Date of admission: 05/26/24 23:58 Expected date of discharge: 05/31/24 Attending physician: Pratik Camejo Consults: 05/27/24 08:53 Consult Physician Routine Consulting Provider: Fernando Lewis Consult Reason/Comments: Herpes Zoster Do you want consulting provider notified?: Yes Primary care physician: [facility] Course: Chief Complaint: Painful rash to left forehead This is a pleasant 68-year-old patient, follows with Dr. Gaspar. Chronic stable medical condition include GERD, hyperlipidemia, hypertension, some cognitive impairment, anxiety depression. About 4 days ago that is on patient noticed some tingling tightness on the left forehead. The following day patient noted a red rash on the left forehead. Over the weekend it became rather painful and blistering. Patient develops a fever and chills. Eyelids Gotten swollen. Diagnosed with herpes zoster. Started on IV acyclovir in the ER. Unable to really open the eyelids because of swelling. Ophthalmology consulted. Patient did have chickenpox as a child. May 2: Blisters remain prominent. Some tenderness. Remains on IV acyclovir. Decreased appetite. Left periapical swelling significant. Barely eyes open May 3: Blisters remain prominent crusting started. Some facial swelling especially in the left side. Cut back dexamethasone to 4 mg twice daily and switch to p.o. Have the patient sit up in a chair. Told the nurse to do some local toilet to remove crust from the eyelashes and eyebrows May 30: Blisters have started to settle down. Left eye periorbital swelling is coming down. Eyes open. Very slight conjunctival injection on the left side. Denies pain. In the eye. Cannot see well. Eating fair. May 31: Lesions started scabbing. Area of resolving redness much better. Has pain. For postherpetic neuralgia pain will start patient on Neurontin. 100 mg twice daily. Prednisone taper. Will also complete a course of acyclovir. Patient has no eye pain good vision. But will have patient follow-up with Dr. Lewis from ophthalmology. Questions answered. Discussion and discharge planning more than 35 minutes Social history: Grandson lives with her. No smoking no alcohol. Physical examination: VITAL SIGNS: 98.6, 70, 18, 130/76, 97% room air GENERAL:Reclining in, comfortable EYES: Pupils equal. Left periorbital swelling has come down. Able to open the eye. Very slight left conjunctival injection. HEENT: [External appearance of nose and ears normal, oral cavity grossly normal. Left forehead blisters In the V1 distribution. Healing well. Periorbital swelling greatly improved NECK: JVD not raised; masses not palpable. HEART: First and second heart sounds are normal; no edema. LUNGS: Respiratory rate normal; clear to auscultation. ABDOMEN: Soft, nontender, liver spleen not palpable, no masses palpable. PSYCH: Alert and oriented x3; mood and affect annie l. MUSCULOSKELETAL:No Clubbing/cyanosis;muscles-grossly intact. OA INVESTIGATIONS, reviewed in the clinical context: Procalcitonin 0.06 May 27: White count 4.7 hemoglobin 12.6 platelets 188 sodium 138 potassium 3.6 creatinine 0.67 Assessment plan: -Acute severe herpes zoster in the V1 distribution. Systemic symptoms of fever and chills. None recorded here.: 77 improvement IV acyclovir 680 mg Q8. Changed From IV to 4 Mg Twice Daily Procalcitonin 0.06 Discharged on acyclovir p.o. 5 mg every 8 for 7 days. Prednisone taper -Doubt herpes zoster infection affecting the left eye. IV acyclovir. Patient to follow-up with Dr. Lewis -GERD Protonix 40 mg twice daily -Essential hypertension Amlodipine 5 mg a day Lopressor 25 mg twice daily -Depression anxiety Lexapro 10 mg a day -Full code Disposition: Home Plan - Discharge Summary New Discharge Prescriptions: New Acyclovir 800 mg PO Q8H #20 tablet predniSONE 10 mg PO DAILY #30 tab Naproxen [Naprosyn] 250 mg PO TID PRN #30 tab PRN Reason: pain Gabapentin [Neurontin] 100 mg PO BID #30 cap Continue Fluticasone Nasal [place] [Flonase Nasal [place]] 2 spr EA NOSTRIL DAILY Betamethasone Dipropionate [Betamethasone Dipropionate 0.05% Cream] 1 applic TOPICAL DAILY Timolol [Betimol 0.5% Ophth Soln] 1 drop LEFT EYE BID Pantoprazole [Protonix] 40 mg PO BID Latanoprost [Xelpros] 1 drop LEFT EYE HS Calcium/Vitamin D 1 tab PO DAILY #0 Hydroxychloroquine Sulfate [Plaquenil] 200 mg PO BID Lactase [Lactaid] 3,000 unit PO DAILY Cyclobenzaprine [Flexeril] 10 mg PO HS PRN PRN Reason: Muscle Spasm Dicyclomine [Bentyl] 40 mg PO BID Biotin 10,000 mcg PO DAILY amLODIPine [Norvasc] 5 mg PO DAILY #30 tab Albuterol Sulfate [Albuterol Sulfate Hfa] 1 - 2 puff PO RT-Q4H PRN PRN Reason: Shortness Of Breath Escitalopram Oxalate [Lexapro] 10 mg PO DAILY Cetirizine HCl [Zyrtec] 10 mg PO DAILY Discontinued Metoprolol Tartrate [Lopressor] 25 mg PO BID Famotidine [Pepcid] 20 mg PO HS PRN PRN Reason: gerd Discharge Medication List Fluticasone Nasal [place] [Flonase Nasal [place]] 2 spr EA NOSTRIL DAILY 06/04/18 [History] Betamethasone Dipropionate [Betamethasone Dipropionate 0.05% Cream] 1 applic TOPICAL DAILY 03/11/21 [History] Biotin 10,000 mcg PO DAILY 03/11/21 [History] Dicyclomine [Bentyl] 40 mg PO BID 03/11/21 [History] Latanoprost [Xelpros] 1 drop LEFT EYE HS 03/11/21 [History] Pantoprazole [Protonix] 40 mg PO BID 03/11/21 [History] Timolol [Betimol 0.5% Ophth Soln] 1 drop LEFT EYE BID 03/11/21 [History] Calcium/Vitamin D 1 tab PO DAILY #0 04/16/22 [Rx] amLODIPine [Norvasc] 5 mg PO DAILY #30 tab 04/16/22 [Rx] Albuterol Sulfate [Albuterol Sulfate Hfa] 1 - 2 puff PO RT-Q4H PRN 05/27/24 [History] Cetirizine HCl [Zyrtec] 10 mg PO DAILY 05/27/24 [History] Cyclobenzaprine [Flexeril] 10 mg PO HS PRN 05/27/24 [History] Escitalopram Oxalate [Lexapro] 10 mg PO DAILY 05/27/24 [History] Hydroxychloroquine Sulfate [Plaquenil] 200 mg PO BID 05/27/24 [History] Lactase [Lactaid] 3,000 unit PO DAILY 05/27/24 [History] Acyclovir 800 mg PO Q8H #20 tablet 05/31/24 [Rx] Gabapentin [Neurontin] 100 mg PO BID #30 cap 05/31/24 [Rx] Naproxen [Naprosyn] 250 mg PO TID PRN #30 tab 05/31/24 [Rx] predniSONE 10 mg PO DAILY #30 tab 05/31/24 [Rx] Follow up Appointment(s)/Referral(s): Tee Gaspar MD [Primary Care Provider] - 1-2 days Fernando Lewis MD [STAFF PHYSICIAN] - 06/03/24 2:20 pm Patient Instructions/Handouts: Shingles (GEN)
== END 2024-05-31 14:18 | disposition home or self-care (01) | DRG 125 ==
LOC: EC 22:22 → OBSVTOIN 23:58 → 6NMEDSUR 23:58 → UNDOADMOB 05-27 00:06 → 6NMEDSUR 05-27 00:24
PROVIDERS: ADMIT Hospitalist; ATTEND Hospitalist
DX: B02.30 Zoster ocular disease, unspecified (principal); F32.A Depression, unspecified; I10 Essential (primary) hypertension; F41.9 Anxiety disorder, unspecified; E78.5 Hyperlipidemia, unspecified; K21.9 Gastro-esophageal reflux disease without esophagitis; Z79.899 Other long term (current) drug therapy; Z80.6 Family history of leukemia; Z90.710 Acquired absence of both cervix and uterus; Z90.49 Acquired absence of other specified parts of digestive tract; Z88.2 Allergy status to sulfonamides; Z91.011 Allergy to milk products
CPT/HCPCS: 36415; 80053; 83605; 83735; 84100; 84145; 84484; 85025; 85610; 85730; 96361; 96374; 99285

== ENCOUNTER 2024-06-08 20:20 | Emergency (ER) | payer MEDICARE ==
--- NOTE | 2024-06-08 22:34 | ED ---
General Adult HPI - General Chief complaint: Recheck/Abnormal Lab/Rx Stated complaint: pain, post shingles Time Seen by Provider: 06/08/24 20:45 Source: patient, RN notes reviewed Mode of arrival: wheelchair Limitations: no limitations - History of Present Illness Initial comments: 68-year-old female presents to the emergency department for evaluation of pain following a diagnosis of shingles. Patient was recently admitted and received IV antivirals for 5 days. She was discharged home and was doing well but recently started experiencing worsening pain. She states that she did not have any pain initially but developed pain over the past 2 days. She does report that she has been following with her PCP and rehab nurse. She denies any new changes in her vision or the rash. She states that the pain feels like shooting nerve pain over the skin. - Related Data Home Medications Medication Instructions Recorded Confirmed Fluticasone Nasal Jenner [Flonase 2 spr EA NOSTRIL DAILY 06/04/18 05/27/24 Nasal Jenner] Betamethasone Dipropionate 1 applic TOPICAL DAILY 03/11/21 05/27/24 [Betamethasone Dipropionate 0.05% Cream] Biotin 10,000 mcg PO DAILY 03/11/21 05/27/24 Dicyclomine [Bentyl] 40 mg PO BID 03/11/21 05/27/24 Latanoprost [Xelpros] 1 drop LEFT EYE HS 03/11/21 05/27/24 Pantoprazole [Protonix] 40 mg PO BID 03/11/21 05/27/24 Timolol [Betimol 0.5% Ophth Soln] 1 drop LEFT EYE BID 03/11/21 05/27/24 Albuterol Sulfate [Albuterol 1 - 2 puff PO RT-Q4H PRN 05/27/24 05/27/24 Sulfate Hfa] Cetirizine HCl [Zyrtec] 10 mg PO DAILY 05/27/24 05/27/24 Cyclobenzaprine [Flexeril] 10 mg PO HS PRN 05/27/24 05/27/24 Escitalopram Oxalate [Lexapro] 10 mg PO DAILY 05/27/24 05/27/24 Hydroxychloroquine Sulfate 200 mg PO BID 05/27/24 05/27/24 [Plaquenil] Lactase [Lactaid] 3,000 unit PO DAILY 05/27/24 05/27/24 Previous Rx's Medication Instructions Recorded Calcium/Vitamin D 1 tab PO DAILY #0 04/16/22 amLODIPine [Norvasc] 5 mg PO DAILY #30 tab 04/16/22 Acyclovir 800 mg PO Q8H #20 tablet 05/31/24 Gabapentin [Neurontin] 100 mg PO BID #30 cap 05/31/24 Naproxen [Naprosyn] 250 mg PO TID PRN #30 tab 05/31/24 predniSONE 10 mg PO DAILY #30 tab 05/31/24 Gabapentin [Neurontin] 200 mg PO TID 3 Days #18 cap 06/08/24 HYDROcodone/APAP 5-325MG [Coleridge 5] 1 each PO Q6HR PRN #12 tab 06/08/24 Allergies Allergy/AdvReac Type Severity Reaction Status Date / Time Milk Containing Products Allergy Diarrhea Verified 06/08/24 20:26 (Dairy) [Dairy] Sulfa (Sulfonamide Allergy Rash/Hives Verified 06/08/24 20:26 Antibiotics) Review of Systems ROS Statement: Those systems with pertinent positive or pertinent negative responses have been documented in the HPI. ROS Other: All systems not noted in ROS Statement are negative. Past Medical History Past Medical History: GERD/Reflux, Hyperlipidemia, Hypertension, Memory Impairment Additional Past Medical History / Comment(s): "Supposed to have sleep study done, snores and does not sleep well." Chronic constipation. Discord Lupus. History of Any Multi-Drug Resistant Organisms: None Reported Past Surgical History: Cholecystectomy, Hysterectomy Past Anesthesia/Blood Transfusion Reactions: No Reported Reaction Past Psychological History: Anxiety, Depression Smoking Status: Never smoker Past Alcohol Use History: Rare Past Drug Use History: None Reported - Past Family History Daughter(s) Family Medical History: Cancer Additional Family Medical History / Comment(s): Leukemia. General Exam Limitations: no limitations General appearance: alert, in no apparent distress Course Vital Signs 06/08/24 06/08/24 06/08/24 20:24 21:17 22:57 Temperature 98.3 F 98.4 F Pulse Rate 66 71 64 Respiratory 16 16 18 Rate Blood Pressure 115/72 117/53 129/60 O2 Sat by Pulse 95 95 95 Oximetry Medical Decision Making - Medical Decision Making Was pt. sent in by a medical professional or institution (, PA, SLEEVE SEPARATOR, urgent care, hospital, or assisted...) When possible be specific @ -No Did you speak to anyone other than the patient for history (EMS, parent, family, police, friend...)? What history was obtained from this source @ -No Did you review nursing and triage notes (agree or disagree)? Why? @ -I reviewed and agree with nursing and triage notes Were old charts reviewed (outside hosp., previous admission, EMS record, old EKG, old radiological studies, urgent care reports/EKG's, assisted records)? Report findings @ -No old charts were reviewed Differential Diagnosis (chest pain, altered mental status, abdominal pain women, abdominal pain men, vaginal bleeding, weakness, fever, dyspnea, syncope, headache, dizziness, GI bleed, back pain, seizure, CVA, palpatations, mental health, musculoskeletal)? @ -Postherpetic neuralgia, herpes zoster, cellulitis, this list is not all inclusive EKG interpreted by me (3pts min.). @ -None X-rays interpreted by me (1pt min.). @ -None done CT interpreted by me (1pt min.). @ -None done U/S interpreted by me (1pt. min.). @ -None done What testing was considered but not performed or refused? (CT, X-rays, U/S, labs)? Why? @ -None What meds were considered but not given or refused? Why? @ -None Did you discuss the management of the patient with other professionals (professionals i.e. , PA, SLEEVE SEPARATOR, lab, RT, psych nurse, social work faculty member, aircraft design engineer, teacher, bank compliance officer, telephonic case manager)? Give summary @ -No Was smoking cessation discussed for >3mins.? @ -No Was critical care preformed (if so, how long)? @ -No Were there social determinants of health that impacted care today? How? (Homelessness, low income, unemployed, alcoholism, drug addiction, transportation, low edu. Level, literacy, decrease access to med. care, senior care, rehab)? @ -No Was there de-escalation of care discussed even if they declined (Discuss DNR or withdrawal of care, Hospice)? DNR status @ -No What co-morbidities impacted this encounter? (DM, HTN, Smoking, COPD, CAD, Cancer, CVA, ARF, Chemo, Hep., AIDS, mental health diagnosis, sleep apnea, morbid obesity)? @ -None Was patient admitted / discharged? Hospital course, mention meds given and route, prescriptions, significant lab abnormalities, going to OR and other pertinent info. @ -Discharged. Patient presented to the emergency department for evaluation of pain following the shingles diagnosis. Patient did take a Coleridge for this pain which helped today. She states that otherwise her rash seems to be improving. She states that her vision also seems to be improving and she is following with ophthalmology. She is taking her medications as prescribed including her antivirals and eyedrops. Patient will be provided medication for pain control on outpatient basis. She is advised to follow-up closely with her PCP and her rehab nurse. She is understanding and agreeable with this plan. Patient stable at time of discharge. Case discussed with Dr. Brown Undiagnosed new problem with uncertain prognosis? @ -No Drug Therapy requiring intensive monitoring for toxicity (Heparin, Nitro, Insulin, Cardizem)? @ -No Were any procedures done? @ -No Diagnosis/symptom? @ -Herpes zoster, neuralgia Acute, or Chronic, or Acute on Chronic? @ -Acute Uncomplicated (without systemic symptoms) or Complicated (systemic symptoms)? @ -Uncomplicated Side effects of treatment? @ -No Exacerbation, Progression, or Severe Exacerbation? @ -No Poses a threat to life or bodily function? How? (Chest pain, USA, AR, pneumonia, PE, COPD, DKA, ARF, appy, cholecystitis, CVA, Diverticulitis, Homicidal, Suicidal, threat to staff... and all critical care pts) @ -No Disposition Clinical Impression: Shingles Disposition: HOME SELF-CARE Condition: Stable Additional Instructions: Please follow up with your rehab nurse and primary care provider. Return to the emergency department for new or worsening symptoms. Prescriptions: Gabapentin [Neurontin] 200 mg PO TID 3 Days #18 cap HYDROcodone/APAP 5-325MG [Coleridge 5] 1 each PO Q6HR PRN #12 tab PRN Reason: Pain Is patient prescribed a controlled substance at d/c from ED?: Yes When asked, does pt state using other controlled substances?: No If prescribed controlled substance>3 days was MAPS reviewed?: Prescribed <3 Days Referrals: Tee Gaspar MD [Primary Care Provider] - 1-2 days
[2024-06-08] MEDS: HYDROmorphone 1 MG/ML 1 ML SYRINGE IM STA (22:48)
[2024-06-08 22:59] VITALS: BP 129/60; PULSE 64; RESP 18; TEMP 98.4
== END 2024-06-08 22:59 | disposition home or self-care (01) ==
LOC: EC 20:20
DX: B02.9 Zoster without complications (principal); M79.2 Neuralgia and neuritis, unspecified; Z91.011 Allergy to milk products; Z88.2 Allergy status to sulfonamides
CPT/HCPCS: 99283; 96372; J1170

== ENCOUNTER → 2024-12-06 | Outpatient (CLI) | payer MEDICARE ==
--- NOTE | 2024-12-06 16:30 | US ---
EXAMINATION TYPE: US carotid duplex BILAT DATE OF EXAM: 12/06/2024 COMPARISON: NONE CLINICAL INDICATION: Female, 69 years old with history of R55 SYNCOPE, I10 HTN; Additional History: .... TECHNIQUE: Grayscale, color Doppler and spectral Doppler evaluation of the bilateral carotid systems and vertebral arteries. Indirect Doppler criteria was utilized. FINDINGS: EXAM MEASUREMENTS: RIGHT: Peak Systolic Velocity (PSV) cm/sec ----- Right CCA: 79.8 ----- Right ICA: 112 ----- Right ECA: 99.2 ICA/CCA ratio: 1.4 RIGHT: End Diastole cm/sec ----- Right CCA: 21.6 ----- Right ICA: 28.1 ----- Right ECA: 15.9 LEFT: Peak Systolic Velocity (PSV) cm/sec ----- Left CCA: 59.0 ----- Left ICA: 60.4 ----- Left ECA: 82.2 ICA/CCA ratio: 1.0 LEFT: End Diastole cm/sec ----- Left CCA: 16.7 ----- Left ICA: 24.2 ----- Left ECA: 13.3 VERTEBRALS (direction of flow): Right Vertebral: Antegrade Left Vertebral: Antegrade Rhythm: Normal ANALYST SALES NOTES: No elevated velocities, plaque or significant stenosis seen bilaterally Color Doppler imaging shows patency with blood flow throughout the carotid artery. Spectral waveforms are within normal limits. IMPRESSION: Right: No hemodynamically significant stenosis. Left: No hemodynamically significant stenosis. Criteria for Assigning % of Stenosis / Diameter reduction (Estimation based on the indirect measurements of the internal carotid artery velocities (ICA PSV). 1. Normal (no stenosis)=ICA PSV < 125 cm/s: ratio < 2.0: ICA EDV<40 cm/s. 2. Less than 50% stenosis=ICA PSV < 125 cm/s: ratio < 2.0: ICA EDV<40 cm/s. 3. 50 to 69% stenosis=ICA PSV of 125 to 230 cm/s: ration 2.0 ? 4.0: ICA EDV 40-100 cm/s. 4. Greater than 70% stenosis to near occlusion= ICA PSV > 230 cm/s: ratio > 4.0: ICA EDV > 100 cm/s. 5. Near occlusion= ICA PSV velocities may be low or undetectable: variable ratio and ICA EDV. 6. Total occlusion=unable to detect flow. [facility], , 12/06/2024 4:28 PM
--- NOTE | 2024-12-06 16:54 | MR ---
INDICATION: Patient age:Female; 69 years old; Reason for study: SYNCOPE AND COLLAPSE R55; [facility]H. COMPARISON: None. TECHNIQUE: Multi planar, multi sequence imaging was performed through the brain. The patient was then given 7 cc of Gadobutrol intravenously and multi planar, T1 fat-saturation images were obtained. FINDINGS: The da silva-white junctions, ventricular system, basal cisterns appear unremarkable. Age-appropriate cer ebral volume. Diffusion-weighted imaging shows no evidence of restricted diffusion to suggest acute/s ubacute infarct. Intracranial arterial flow voids are maintained. Midline structures show no abnormal ity. Few foci of high T2/FLAIR signal intensity are seen within the periventricular and subcortical w iqra matter. Largest is within the left frontal lobe subcortical white matter measuring up to 5 mm (s eries 601, image 23). The susceptibility weighted images do not reveal any evidence for micro-hemorrh age. After administration of gadolinium, no abnormal enhancement is seen. The bone marrow signal is within normal limits. The paranasal sinuses and globes are unremarkable. IMPRESSION: 1. No evidence of intracranial mass, acute/subacute infarct, or abnormal enhancement. 2. Nonspecific white matter changes, likely related to small vessel ischemic disease versus other eva ologies. [facility], , 12/06/2024 4:52 PM
== END | disposition home or self-care (01) ==
LOC: RADUSWWP 14:42
PROVIDERS: ATTEND Family Medicine
DX: I10 Essential (primary) hypertension (principal); R55 Syncope and collapse; R90.82 White matter disease, unspecified
CPT/HCPCS: 93880; 70553; A9585